=== PATIENT | female | born 1965 | race Caucasian/White ===

== ENCOUNTER 2018-06-25 13:19 | Inpatient (IN) | payer OTHER ==
[2018-06-22 18:05] VITALS: BMI 25.7
[~2018-06-25] VITALS: Ht 157.5 cm; Wt 65.5 kg
[2018-06-25] VITALS (9 sets, daily range): BP systolic 108–124; BP diastolic 77–90; PULSE 61–70; RESP 12–21; Ht 157.5 cm; Wt 65.5 kg
[2018-06-25] MEDS ORDERED: SYMB80120 INHALATION (13:44)
[2018-06-25] MEDS ORDERED: TIOT18CA INHALATION (13:44)
[2018-06-25] MEDS ORDERED: MONT10TA21 PO (13:45)
[2018-06-25] MEDS ORDERED: ATEN100T PO (13:45)
[2018-06-25] MEDS ORDERED: QUET400T PO (13:46)
[2018-06-25] MEDS ORDERED: TEMA15CA6 PO (13:46)
[2018-06-25] MEDS ORDERED: LUN2 PO (13:47)
[2018-06-25] MEDS ORDERED: LAMO100T83 PO (13:49)
[2018-06-25] MEDS ORDERED: LACTATED RINGER'S 1,000 ML IV SCH (15:00)
--- NOTE | 2018-06-25 15:25 | PREAC ---
Date/Time of Note Date/Time of Note DATE: 06/25/18 TIME: 15:23 Anesthesia Eval and Record Evaluation Time Pre-Procedure Interview DATE: 06/25/18 TIME: 15:23 Age 52 Sex female NPO: 8 hrs Preoperative diagnosis LUMBER DECOMPRESSION FX Planned procedure ANTERIOE l3 s1 ANTERIOR FUSION Past Medical History Past Medical History: Includes Cardio: HTN Pulm: COPD Surgery & Anesthesia Issues No known issue Meds Anticoagulation: No Beta Gordo within 24 hr: Yes Reported Medications Lamotrigine* (Lamictal*) 100 Mg Tablet, 50 MG PO DAILY, TAB 06/25/18 Eszopiclone (Lunesta) 2 Mg Tab, 2 MG PO HS PRN for INSOMNIA, TAB 06/25/18 Temazepam* (Restoril*) 15 Mg Capsule, 15 MG PO HS PRN for INSOMNIA, CAP 06/25/18 Quetiapine Fumarate* (Seroquel*) 400 Mg Tablet, 400 MG PO HS, TAB 06/25/18 Montelukast Sodium* (Singulair*) 10 Mg Tablet, 10 MG PO QHS, #30 TAB 06/25/18 Atenolol* (Atenolol*) 100 Mg Tablet, 100 MG PO DAILY, #30 TAB 06/25/18 Tiotropium [place]* (Spiriva*) 18 Mcg Cap.w.dev, 1 CAP INHALATION DAILY, #30 CAP 06/25/18 Budesonide-Formoterol Fumarate* (Symbicort*) 80-4.5 Inha, 2 PUFFS INHALATION BID, #1 EACH 06/25/18 Current Medications Lactated Ringer's 1,000 ml @ 25 mls/hr Q24H IV Last administered on 06/25/18at 14:39; Admin Dose 25 MLS/HR; Start 06/25/18 at 15:00 Meds reviewed: Yes Allergies Coded Allergies: amoxicillin (Verified Allergy, Severe, SWELLING, VOMITING, 06/25/18) clavulanic acid (Verified Allergy, Severe, SWELLING, VOMITING, 06/25/18) ketorolac (Verified Allergy, Severe, ANAPHYLAXIS, 06/25/18) morphine (Verified Allergy, Severe, 06/25/18) Allergies Reviewed: Yes Labs/Studies Labs Reviewed: Reviewed by anesthesiologist Result Diagram: 06/25/18 1448 Laboratory Tests 06/25/18 14:48 Blood Bank Test 06/25/18 14:48 Blood Product Summary Counts test: Negative Studies: ECG (SR), CXR (NL) Pre-procedure Exam Last vitals Vital Signs Date Temp Pulse Resp B/P (MAP) Pulse Ox O2 O2 Flow FiO2 Time Delivery Rate 06/25/18 97.6 68 16 122/77 96 Room Air 14:22 (92) Airway: Adequate mouth opening Mallampati: Mallampati I Teeth: Normal Lung: Normal Heart: Normal ASA Physical Status ASA physical status: 2 Emergency: None Planned Anesthetic General/MAC: ETT Nerve block: TAP (bilateral) Planned Pain Management Single shot nerve block, Parenteral pain med Pre-operative Attestations Prior to commencing anesthesia and surgery, the patient was re-evaluated, there was verification of: *The patient's identity *The results of appropriate recent lab work and preoperative vital signs *The above evaluation not changing prior to induction *Anesthetic plan, risk benefits, alternative and complications discussed with patient/family; questions answered; patient/family understands, accepts and wishes to proceed. JUANI CALIXTO MD June 25, 2018 15:25
[2018-06-25] MEDS ORDERED: LABETALOL HCL 20MG INJ IV PRN (15:30)
[2018-06-25] MEDS ORDERED: ONDANSETRON 4 MG INJ IV PRN ×2 (15:30→20:00)
[2018-06-25] MEDS ORDERED: MEPERIDINE 25 MG INJ IV PRN (15:30)
[2018-06-25] MEDS ORDERED: hydrALAzine 20 MG INJ IV PRN (15:30)
[2018-06-25] MEDS ORDERED: ALBUTEROL 0.083% (NEB) 2.5 MG/3 ML AMP HHN PRN (15:30)
[2018-06-25] MEDS ORDERED: IPRATROPIUM (NEB) 0.5 MG/2.5 ML AMP HHN PRN (15:30)
[2018-06-25] MEDS ORDERED: FENTAnyl 50 MCG/ML VIAL IV PRN ×3 (15:30)
[2018-06-25] MEDS ORDERED: HYDROmorphONE 1 MG/5 ML IV SYRINGE IV PRN ×3 (15:30)
[2018-06-25] MEDS ORDERED: DIPHENHYDRAMINE 50 MG INJ IV PRN (15:30)
[2018-06-25] MEDS ORDERED: GELATIN SIZE 100 SPONGE ONE (16:50)
[2018-06-25] MEDS ORDERED: CEFAZOLIN 1 GM INJ ONE ×2 (16:50→18:08)
[2018-06-25] MEDS ORDERED: HEPARIN 1000 UNITS/ML 10 ML INJ ONE (16:51)
[2018-06-25] MEDS ORDERED: THROMBIN 5000 UNIT VIAL ONE (16:56)
--- NOTE | 2018-06-25 17:02 | HPN ---
Date/Time of Note Date/Time of Note DATE: 06/25/18 TIME: 17:00 Interval H&P Admission Note Pt. seen H&P reviewed: No system changes Neurosurgery Update Note Extensive d/w patient about all available options including surgery vs no surgery. Overall risk/complications 3-5% as preprinted in my office consent form thoroughly discussed. All questions answered and no guarantees given. Pt understands this will be a staged procedure with anterior portion today and posterior fixation to follow in am (06/26/2018 0730) All questions answered and no guarantees given. NAHOMI GOMEZ MD June 25, 2018 17:02
[2018-06-25] MEDS ORDERED: ROPIVACAINE 0.5 % 30 ML VIAL ONE (17:33)
[2018-06-25] MEDS ORDERED: PROPOFOL 20 ML ONE ×2 (17:33→19:35)
[2018-06-25] MEDS ORDERED: ONDANSETRON 4 MG INJ ONE (17:33)
[2018-06-25] MEDS ORDERED: MIDAZOLAM 1 MG/ML 2 ML INJ ONE (17:33)
[2018-06-25] MEDS ORDERED: METOCLOPRAMIDE 10 MG INJ ONE (17:33)
[2018-06-25] MEDS ORDERED: ROCURONIUM 50 MG INJ ONE ×2 (17:33→18:18)
[2018-06-25] MEDS ORDERED: EPHEDrine 25 MG/5 ML SYG ONE (18:08)
[2018-06-25] MEDS ORDERED: HYDROmorphONE 2 MG/ML SYG ONE (18:41)
[2018-06-25] MEDS ORDERED: NACL 0.9% 3 ML SYG IV SCH (19:00)
[2018-06-25] MEDS ORDERED: HYDROCODONE/APAP (5/325) TAB PO PRN (19:00)
[2018-06-25] MEDS ORDERED: NALOXONE (0.4 MG/ML) INJ IV PRN (19:00)
[2018-06-25] MEDS ORDERED: AL HYDROX/MG HYDROX/SIMETH 30 ML CUP PO PRN (19:00)
[2018-06-25] MEDS ORDERED: NEOSTIGMINE 3 MG/3 ML SYRINGE ONE (19:36)
[2018-06-25] MEDS ORDERED: GLYCOPYRROLATE 0.4 MG INJ ONE (19:36)
[2018-06-25] MEDS ORDERED: HYDROmorphONE 0.5 MG/0.5 ML SYG IV PRN ×3 (20:00)
--- NOTE | 2018-06-25 20:02 | OPPN ---
Date/Time of Note Date/Time of Note DATE: 06/25/18 TIME: 20:00 Operative Report Preoperative Diagnosis Mechnical LBP and LE radiculopathy Postoperative Diagnosis same Operation/Procedure Performed ALIF L3,4 and L5S1 Surgeon see signature line biology laboratory assistant Malekmehr Second assist: SAMARIA ALFORD NP Anesthesia: general Estimated blood loss: 150 - 200 ml's Transfusion Required none Specimen sent Grafts/Implants cages, screws, formagraf, allograft bone Complications none NAHOMI GOMEZ MD June 25, 2018 20:02
[2018-06-25] MEDS ORDERED: DIPHENHYDRAMINE 50 MG INJ ONE (20:07)
[2018-06-25] MEDS ORDERED: MEPERIDINE 100 MG INJ ONE (20:08)
[2018-06-25] MEDS ORDERED: METOPROLOL 5 MG INJ ONE (20:09)
--- NOTE | 2018-06-25 20:37 | OPR ---
DATE OF OPERATION: 06/25/2018 PREOPERATIVE DIAGNOSIS: Degenerative disk disease, lumbosacral spine. POSTOPERATIVE DIAGNOSIS: Degenerative disk disease, lumbosacral spine. OPERATION PERFORMED: 1. Anterior retroperitoneal exposure, interbody fusion, L3 to L4. 2. Anterior retroperitoneal exposure, interbody fusion, L5 to S1. SURGEON: Shanda Atkinson MD COSURGEON: Cam Gomez MD ESTIMATED BLOOD LOSS: 150 mL. INFORMED CONSENT: Risks, benefits, complications, alternative therapies, high-risk nature of the ope ration were fully explained to the patient. Consent was obtained. Risks and benefits that were expl ained to the patient included but not limited to bleeding, infection, damage to bowel, damage to uret er, wound infection, wound dehiscence, DVT, PE, loss of limb, loss of life, high-risk nature of the o peration fully explained and stressed to the patient. All questions were answered. OPERATIVE TECHNIQUE: The patient was placed in supine position, prepped and draped in usual sterile fashion. I made a 10 cm incision in left paramedian and from the umbilicus down, incision was taken down to subcutaneous tissue which was then opened using electrocautery. Left anterior rectus sheath was opened in the direction of the wound. Posterior rectus sheath was incised superiorly about 2 cm. Bookwalter retractor was placed retracting the bowel contents to the right, left rectus muscle to l eft. I dissected the left common iliac artery and vein, external iliac artery and vein. The iliolum bar veins were ligated using 2-0 silk sutures and titanium clips. Middle sacral vessels were ligated using titanium clips. Exposure for L3 to L4 was obtained by retracting the vena cava and aorta to t he right side. Exposure for L5 to S1 was obtained between the right and left common iliac artery and vein. We proceeded with the diskectomy and the placement of the new cage. Please refer to Dr. Milena do's dictations for the details of that operation. After all the x-rays were satisfactory read by Dr. Gomez, needle count and sponge count was correct. The wound was irrigated using antibiotic solution . Posterior rectus sheath was closed using 0 Vicryl suture in running fashion. Anterior rectus harris th was closed using a #1 Vicryl suture in running fashion. The wound was irrigated again and closed in 2 layers of 2-0 Vicryl suture for subcutaneous and Steri-Strips for the skin. The patient tolerat ed procedure well. Dictated By: SHANDA ATKINSON MD FM/MANUEL Conf#: [id number] DID#: [id number] CC: CAM GOMEZ MD;*EndCC*
[2018-06-25] MEDS: NS + KCL 20 MEQ 1,000 ML IV SCH (20:40)
--- NOTE | 2018-06-25 20:41 | CONS ---
DATE OF ADMISSION: 06/25/2018 DATE OF CONSULTATION: 06/25/2018 REASON FOR CONSULTATION: Evaluation for anterior retroperitoneal exposure interbody fusion of lumbos acral spine. HISTORY OF PRESENT ILLNESS: This is a 52-year-old female with a history of degenerative disk disease , lumbosacral spine. The patient is being admitted to undergo anterior retroperitoneal exposure and interbody fusion of lumbosacral spine. PAST SURGICAL HISTORY: None. ALLERGIES: NONE. SOCIAL HISTORY: No smoking, drinking or drug use. MEDICATIONS: Reviewed. PHYSICAL EXAMINATION: VITAL SIGNS: Blood pressure is 110/60, pulse is 80, respirations 18. CARDIOVASCULAR: Normal S1, S2. No murmurs, gallops or rubs. LUNGS: Clear. ABDOMEN: Soft. EXTREMITIES: Warm. IMPRESSION: Degenerative disk disease, lumbosacral spine. RECOMMENDATIONS: We will proceed with anterior retroperitoneal exposure interbody fusion of lumbosac ral spine. Risks, benefits, complications, alternative therapies, high-risk nature of the operation were fully explained to the patient and the family. All questions were answered. Risks and benefits that were explained to the patient and the family included but not limited to bleeding, infection, d amage to bowel, damage to ureter, wound infection, wound dehiscence, DVT, PE, loss of limb, loss of l aldo, high-risk nature of the operation were fully explained and stressed to the patient. All questio ns answered. Dictated By: SHANDA DANIEL MD FM/NTS Conf#: [id number] DID#: [id number] CC: NAHOMI GOMEZ MD;*EndCC*
[2018-06-25] MEDS: HYDROmorphONE 0.2 MG/ML PCA IV SCH (21:59)
[2018-06-25] MEDS: CEFAZOLIN 2 GM/50 ML (PMX) 50 ML IVPB SCH (22:00)
[2018-06-26] VITALS (67 sets, daily range): BP systolic 62–144; BP diastolic 39–127; PULSE 70–97; RESP 9–28
[2018-06-26] MEDS: HYDROmorphONE 0.2 MG/ML PCA IV SCH ×5 (01:59→21:31)
[2018-06-26] MEDS: NS + KCL 20 MEQ 1,000 ML IV SCH ×2 (05:33→14:21)
[2018-06-26] MEDS: CEFAZOLIN 2 GM/50 ML (PMX) 50 ML IVPB SCH ×3 (06:16→21:12)
[2018-06-26] MEDS ORDERED: DESFLURANE 15 MIN ONE (07:00)
[2018-06-26] MEDS ORDERED: THROMBIN 5000 UNIT VIAL ONE (07:06)
[2018-06-26] MEDS ORDERED: GELATIN SIZE 100 SPONGE ONE (07:06)
[2018-06-26] MEDS ORDERED: ROPIVACAINE 0.5 % 30 ML VIAL ONE (07:07)
[2018-06-26] MEDS ORDERED: POLYMYXIN/BACITRACIN 1L IRRIG ONE (07:07)
[2018-06-26] MEDS ORDERED: MIDAZOLAM 1 MG/ML 2 ML INJ ONE (07:51)
[2018-06-26] MEDS ORDERED: CEFAZOLIN 1 GM INJ ONE (07:51)
[2018-06-26] MEDS ORDERED: ONDANSETRON 4 MG INJ ONE (07:51)
[2018-06-26] MEDS ORDERED: METOCLOPRAMIDE 10 MG INJ ONE (07:51)
[2018-06-26] MEDS ORDERED: PROPOFOL 20 ML ONE (07:51)
[2018-06-26] MEDS ORDERED: ROCURONIUM 50 MG INJ ONE ×2 (07:51→09:55)
--- NOTE | 2018-06-26 07:51 | PREAC ---
Date/Time of Note Date/Time of Note DATE: 06/26/18 TIME: 07:49 Anesthesia Eval and Record Evaluation Time Pre-Procedure Interview DATE: 06/26/18 TIME: 07:49 Age 52 Sex female NPO: 8 hrs Preoperative diagnosis L3s1 degenerative disease lumbar fx Planned procedure L3 s1 posterior minstrumentation, cagesm screw Past Medical History Past Medical History: Includes Cardio: HTN Pulm: COPD Surgery & Anesthesia Issues No known issue Meds Anticoagulation: No Beta Gordo within 24 hr: Yes Reason Beta Gordo not given: Pt. not on B-Gordo Reported Medications Lamotrigine* (Lamictal*) 100 Mg Tablet, 50 MG PO DAILY, TAB 06/25/18 Eszopiclone (Lunesta) 2 Mg Tab, 2 MG PO HS PRN for INSOMNIA, TAB 06/25/18 Temazepam* (Restoril*) 15 Mg Capsule, 15 MG PO HS PRN for INSOMNIA, CAP 06/25/18 Quetiapine Fumarate* (Seroquel*) 400 Mg Tablet, 400 MG PO HS, TAB 06/25/18 Montelukast Sodium* (Singulair*) 10 Mg Tablet, 10 MG PO QHS, #30 TAB 06/25/18 Atenolol* (Atenolol*) 100 Mg Tablet, 100 MG PO DAILY, #30 TAB 06/25/18 Tiotropium [place]* (Spiriva*) 18 Mcg Cap.w.dev, 1 CAP INHALATION DAILY, #30 CAP 06/25/18 Budesonide-Formoterol Fumarate* (Symbicort*) 80-4.5 Inha, 2 PUFFS INHALATION BID, #1 EACH 06/25/18 Current Medications Lactated Ringer's 1,000 ml @ 25 mls/hr Q24H IV Last administered on 06/25/18at 14:39; Admin Dose 25 MLS/HR; Start 06/25/18 at 15:00 Acetaminophen/ Hydrocodone Bitart ([place] (5/325)) 1 tab Q4H PRN PO .PAIN 1-5; Start 06/25/18 at 19:00 Al Hydrox/Mg Hydrox/Simethicone (Mag-Al Plus) 15 ml Q4H PRN PO .CONSTIPATION; Start 06/25/18 at 19:00 IV Flush (NS 3 ml) 3 ml PER PROTOCOL IV ; Start 06/25/18 at 19:00 Hydromorphone HCl (Dilaudid STRATEGY INTERN) 1 mg Q4PCA IV Last administered on 06/26/18at 07:05; Admin Dose 1 MG; Start 06/25/18 at 19:00 Naloxone HCl (Narcan) 0.2 mg Q2M PRN IV RR 8 BREATHS/MIN OR LESS; Start 06/25/18 at 19:00 Cefazolin Sodium/ Dextrose 50 ml @ 100 mls/hr Q8 IVPB Last administered on 06/26/18at 06:16; Admin Dose 100 MLS/HR; Start 06/25/18 at 22:00; Stop 06/28/18 at 22:00 Potassium Chloride/Sodium Chloride 1,000 ml @ 100 mls/hr Q10H IV Last administered on 06/26/18at 05:33; Admin Dose 100 MLS/HR; Start 06/25/18 at 19:00 Meds reviewed: Yes Allergies Coded Allergies: amoxicillin (Verified Allergy, Severe, SWELLING, VOMITING, 06/25/18) clavulanic acid (Verified Allergy, Severe, SWELLING, VOMITING, 06/25/18) ketorolac (Verified Allergy, Severe, ANAPHYLAXIS, 06/25/18) morphine (Verified Allergy, Severe, 06/25/18) Allergies Reviewed: Yes Labs/Studies Labs Reviewed: Reviewed by anesthesiologist Result Diagram: 06/26/18 0430 06/26/18 0430 Laboratory Tests 06/26/18 04:30 Blood Bank Test 06/25/18 14:48 Antibody Screen NEGATIVE Blood Product Summary Counts Blood Type O POSITIVE Crossmatch Red Blood Cells test: Negative Studies: ECG (sr), CXR (nl) Pre-procedure Exam Last vitals Vital Signs Date Temp Pulse Resp B/P (MAP) Pulse Ox O2 O2 Flow FiO2 Time Delivery Rate 06/26/18 87 19 123/74 07:30 (90) 06/26/18 100 07:00 06/26/18 98.1 Room Air 04:00 06/25/18 8.0 21:00 Airway: Adequate mouth opening Mallampati: Mallampati I Teeth: Normal Lung: Normal Heart: Normal ASA Physical Status ASA physical status: 2 Emergency: None Planned Anesthetic General/MAC: ETT Planned Pain Management Parenteral pain med Pre-operative Attestations Prior to commencing anesthesia and surgery, the patient was re-evaluated, there was verification of: *The patient's identity *The results of appropriate recent lab work and preoperative vital signs *The above evaluation not changing prior to induction *Anesthetic plan, risk benefits, alternative and complications discussed with patient/family; questions answered; patient/family understands, accepts and wishes to proceed. JUANI CALIXTO MD June 26, 2018 07:51
--- NOTE | 2018-06-26 07:55 | PAC ---
Date/Time of Note Date/Time of Note DATE: 06/26/18 TIME: 07:54 Post-Anesthesia Notes Post-Anesthesia Note Last documented vital signs Vital Signs Date Temp Pulse Resp B/P (MAP) Pulse Ox O2 O2 Flow FiO2 Time Delivery Rate 06/26/18 98.1 87 19 123/74 100 07:30 (90) 06/26/18 100 07:00 06/26/18 98.1 Room Air 04:00 06/25/18 8.0 21:00 Activity: WNL Respiratory function: WNL Cardiovascular function: WNL Mental status: Baseline Pain reasonably controlled: Yes Hydration appropriate: Yes Nausea/Vomiting absent: No JUANI CALIXTO MD June 26, 2018 07:54
--- NOTE | 2018-06-26 07:58 | HPN ---
Date/Time of Note Date/Time of Note DATE: 06/26/18 TIME: 07:56 Interval H&P Admission Note Pt. seen H&P reviewed: No system changes Neurosurgery Update Extensive d/w patient about all available options including surgery vs no surgery. Overall risk/complications 3-5% thoroughly discussed. All questions answered and no guarantees given. Posterior fixation planned for today. NAHOMI GOMEZ MD June 26, 2018 07:58
[2018-06-26] MEDS ORDERED: HYDROmorphONE 2 MG/ML SYG ONE (08:42)
[2018-06-26] MEDS ORDERED: NEOSTIGMINE 3 MG/3 ML SYRINGE ONE (09:46)
[2018-06-26] MEDS ORDERED: PHENYLephrine (100 MCG/ML) 10ML SYG ONE (09:46)
[2018-06-26] MEDS ORDERED: GLYCOPYRROLATE 0.4 MG INJ ONE (09:46)
--- NOTE | 2018-06-26 09:53 | OPPN ---
Date/Time of Note Date/Time of Note DATE: 06/26/18 TIME: 09:52 Operative Report Preoperative Diagnosis Mechanical LBP with LE Radiculopathy Postoperative Diagnosis Same Operation/Procedure Performed 1. L4-5 Lumbar Hardware Removal 2. L3-S1 ISF placement Surgeon see signature line assistant associate full professor KARL Juarez, ACNP-BC Anesthesia: general Estimated blood loss: 50 - 100 ml's Transfusion Required none Specimen L3-S1 bones and ligaments Grafts/Implants none Complications none NAHOMI GOMEZ MD June 26, 2018 09:53
[2018-06-26] MEDS ORDERED: HYDROmorphONE 0.5 MG/0.5 ML SYG IV PRN ×3 (10:00)
[2018-06-26] MEDS ORDERED: MEPERIDINE 25 MG INJ IV PRN (10:00)
[2018-06-26] MEDS ORDERED: DIPHENHYDRAMINE 50 MG INJ IV PRN (10:00)
[2018-06-26] MEDS ORDERED: ONDANSETRON 4 MG INJ IV PRN (10:00)
[2018-06-26] MEDS ORDERED: hydrALAzine 20 MG INJ IV PRN (10:00)
[2018-06-26] MEDS ORDERED: LABETALOL HCL 20MG INJ IV PRN (10:00)
[2018-06-26] MEDS ORDERED: FENTAnyl 50 MCG/ML VIAL IV PRN ×3 (10:00)
[2018-06-26] MEDS: LORAZEPAM 2 MG INJ IV PRN ×3 (11:28→22:43)
[2018-06-26] MEDS ORDERED: LAMOTRIGINE 100 MG TAB PO SCH (11:30)
[2018-06-26] MEDS ORDERED: ZOLPIDEM 5 MG TAB PO PRN (11:30)
[2018-06-26] MEDS ORDERED: NON-FORMULARY/PATIENT OWN MED (Eszopiclone (Lunesta) 2 MG) PO PRN (11:30)
--- NOTE | 2018-06-26 11:35 | HP ---
Date/Time of Note Date/Time of Note DATE: 06/26/18 TIME: 11:21 Assessment/Plan VTE Prophylaxis Risk score (from Ns)>0 risk: 9 SCD applied [place]from [facility] Yes Pharmacological prophylaxis: NA/contraindicated Pharm contraindication: surgical contra Lines/Catheters IV Catheter Type (from Nrsg): A Line Assessment/Plan Assessment/Plan -Mechanical LBP and LE radiculopathy. S/p ALIF L3,[address] Norman with anterior peritoneal exposure by Dr. Atkinson on 06/25/18. S/p L4-5 Lumbar Hardw are Removal and L3-S1 ISF placement by Reyes Norman on 06/26/18. 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 Continue IV fluids and postoperative antibiotic. Physical therapy. -Chronic lower back pain. Dr. Lux is asked to see patient in pain management consultation. -Hypertension, continue atenolol. -COPD, continue budesonide -Severe insomnia Further recommendations based on clinical course. Plan of care discussed with Dr. Gibbons. Result Diagram: 06/26/18 0430 06/26/18 0430 Results 24hrs Laboratory Tests Test 06/25/18 14:48 06/26/18 04:30 White Blood Count 6.4 7.4 Red Blood Count 4.06 L 3.64 L Hemoglobin 13.4 12.0 Hematocrit 39.6 35.1 L Mean Corpuscular Volume 97.5 96.4 Mean Corpuscular Hemoglobin 33.0 33.0 Mean Corpuscular Hemoglobin Concent 33.8 34.2 Red Cell Distribution Width 13.1 12.9 Platelet Count 274 251 Mean Platelet Volume 9.7 10.2 Immature Granulocytes % 0.200 0.300 Neutrophils % 66.9 77.8 H Lymphocytes % 24.0 13.2 L Monocytes % 6.2 7.7 Eosinophils % 1.9 0.5 Basophils % 0.8 0.5 Nucleated Red Blood Cells % 0.0 0.0 Immature Granulocytes # 0.010 0.020 Neutrophils # 4.3 5.8 Lymphocytes # 1.5 1.0 Monocytes # 0.4 0.6 Eosinophils # 0.1 0.0 Basophils # 0.1 0.0 Nucleated Red Blood Cells # 0.0 0.0 Prothrombin Time 12.5 13.1 Prothrombin Time Ratio 1.0 1.0 INR International Normalized Ratio 0.92 0.98 Activated Partial Thromboplast Time 28.8 Sodium Level 140 139 Potassium Level 3.9 3.8 Chloride Level 110 111 H Carbon Dioxide Level 23 23 Anion Gap 7 5 Blood Urea Nitrogen 19 14 Creatinine 1.16 H 0.89 Est Glomerular Filtrat Rate mL/min 49 L > 60 Glucose Level 90 97 Calcium Level 9.4 8.4 Total Bilirubin 0.7 Direct Bilirubin 0.00 Indirect Bilirubin 0.7 Aspartate Amino Transf (AST/SGOT) 27 Alanine Aminotransferase (ALT/SGPT) 20 Alkaline Phosphatase 80 Total Protein 7.1 Albumin 4.0 Globulin 3.10 Albumin/Globulin Ratio 1.29 HPI/ROS Admit Date/Time Admit Date/Time June 25, 2018 at 13:19 Hx of Present Illness Patient is a 52-year-old female with mechanical low back pain and lower extremity radiculopathy with history of multiple lumbar surgeries underwent anterior lumbar interbody fusion last night with completion of posterior part of the surgery today. Patient had a history of hypertension, COPD, severe insomnia. Patient seen and intensive care unit, awake alert uses HOUSEHOLD APPLIANCES SERVICE TECHNICIAN Dilaudid as needed for pain patient is slightly anxious. Patient denies shortness of breath denies chest pain denies any nausea and vomiting. ROS 12 point review of system is negative except for what mentioned in HPI PMH/Family/Social Past Medical History Medical History: hypertension, other (COPD, insomnia, chronic low back pain) Medications Current Medications Acetaminophen/ Hydrocodone Bitart ([place] (5/325)) 1 tab Q4H PRN PO .PAIN 1-5; Start 06/25/18 at 19:00 Al Hydrox/Mg Hydrox/Simethicone (Mag-Al Plus) 15 ml Q4H PRN PO .CONSTIPATION; Start 06/25/18 at 19:00 IV Flush (NS 3 ml) 3 ml PER PROTOCOL IV ; Start 06/25/18 at 19:00 Hydromorphone HCl (Dilaudid HOUSEHOLD APPLIANCES SERVICE TECHNICIAN) 1 mg Q4PCA IV Last administered on 06/26/18at 07:05; Admin Dose 1 MG; Start 06/25/18 at 19:00 Naloxone HCl (Narcan) 0.2 mg Q2M PRN IV RR 8 BREATHS/MIN OR LESS; Start 06/25/18 at 19:00 Cefazolin Sodium/ Dextrose 50 ml @ 100 mls/hr Q8 IVPB Last administered on 06/26/18at 06:16; Admin Dose 100 MLS/HR; Start 06/25/18 at 22:00; Stop 06/28/18 at 22:00 Potassium Chloride/Sodium Chloride 1,000 ml @ 100 mls/hr Q10H IV Last administered on 06/26/18at 05:33; Admin Dose 100 MLS/HR; Start 06/25/18 at 19:00 Hydromorphone HCl (Dilaudid) 0.2 mg ICU RECOVERY PRN IV MILD PAIN LEVEL 1-3; Start 06/26/18 at 10:00; Stop 06/26/18 at 17:00 Hydromorphone HCl (Dilaudid) 0.4 mg ICU RECOVERY PRN IV MODERATE PAIN LEVEL 4-6; Start 06/26/18 at 10:00; Stop 06/26/18 at 12:00 Hydromorphone HCl (Dilaudid) 0.6 mg ICU RECOVERY PRN IV SEVERE PAIN LEVEL 7-10; Start 06/26/18 at 10:00; Stop 06/26/18 at 12:00 Fentanyl (Sublimaze) 25 mcg ICU RECOVERY PRN IV MILD PAIN LEVEL 1-3; Start 06/26/18 at 10:00; Stop 06/26/18 at 17:00 Fentanyl (Sublimaze) 50 mcg ICU RECOVERY PRN IV MODERATE PAIN LEVEL 4-6 Last administered on 06/26/18at 10:55; Admin Dose 50 MCG; Start 06/26/18 at 10:00; Stop 06/26/18 at 17:00 Fentanyl (Sublimaze) 75 mcg ICU RECOVERY PRN IV SEVERE PAIN LEVEL 7-10; Start 06/26/18 at 10:00; Stop 06/26/18 at 17:00 Ondansetron HCl (Zofran Inj) 4 mg ICU RECOVERY PRN IV NAUSEA/VOMITING; Start 06/26/18 at 10:00; Stop 06/26/18 at 16:00 Labetalol HCl (Labetalol) 5 mg ICU RECOVERY PRN IV HIGH BLOOD PRESSURE; Start 06/26/18 at 10:00; Stop 06/26/18 at 16:00 Hydralazine HCl (Apresoline) 5 mg ICU RECOVERY PRN IV HIGH BLOOD PRESSURE; Start 06/26/18 at 10:00; Stop 06/26/18 at 17:00 Meperidine HCl (Demerol) 25 mg ICU RECOVERY PRN IV .RIGORS; Start 06/26/18 at 10:00; Stop 06/26/18 at 17:00 Diphenhydramine HCl (Benadryl) 25 mg ICU RECOVERY PRN IV .PRURITUS Last administered on 06/26/18at 10:29; Admin Dose 25 MG; Start 06/26/18 at 10:00; Stop 06/26/18 at 16:00 Lorazepam (Ativan) 0.5 mg Q4 PRN IV AGITATION/ANXIETY; Start 06/26/18 at 11:30 Atenolol (Tenormin) 100 mg DAILY PO ; Start 06/26/18 at 11:30; Status UNV Lamotrigine (Lamictal) 50 mg DAILY PO ; Start 06/26/18 at 11:30; Status UNV Montelukast Sodium (Singulair) 10 mg QHS PO ; Start 06/26/18 at 21:00; Status UNV Quetiapine Fumarate (Seroquel) 400 mg HS PO ; Start 06/26/18 at 21:00; Status UNV Tiotropium [place] (Spiriva) 1 inh DAILY INH ; Start 06/26/18 at 11:30 Miscellaneous Information 2 puffs BID INHALATION ; Start 06/26/18 at 21:00; Status UNV Miscellaneous Information 2 mg HS PRN PO INSOMNIA; Start 06/26/18 at 11:30; Status UNV Miscellaneous Information 15 mg HS PRN PO INSOMNIA; Start 06/26/18 at 11:30; Status UNV Coded Allergies: amoxicillin (Verified Allergy, Severe, SWELLING, VOMITING, 06/25/18) clavulanic acid (Verified Allergy, Severe, SWELLING, VOMITING, 06/25/18) ketorolac (Verified Allergy, Severe, ANAPHYLAXIS, 06/25/18) morphine (Verified Allergy, Severe, 06/25/18) Past Surgical History Past Surgical Hx: other (Status post multiple lumbar surgery, status post cervical spine anterior fusion, status post breast implants) Family History Significant Family History: cancer (Breast cancer and patient sibling), hypertension (Patient's mother) Social History Alcohol Use: occasionally Smoking Status: Former smoker Drug Use: none Exam/Review of Systems Vital Signs Vitals Vital Signs Date Temp Pulse Resp B/P (MAP) Pulse Ox O2 O2 Flow FiO2 Time Delivery Rate 06/26/18 76 9 78/63 (68) 100 Nasal 11:00 Cannula 06/26/18 98.4 10:02 06/25/18 8.0 21:00 Intake and Output 06/25/18 06/25/18 06/26/18 1515:00 23:00 07:00 IntakeIntake Total 1450 ml 950 ml OutputOutput Total 300 ml 465 ml BalanceBalance 1150 ml 485 ml Exam Constitutional: alert, oriented Head: normocephalic Neck: supple Respiratory: clear to auscultation Cardiovascular: regular rate and rhythm Gastrointestinal: soft, other (Status post surgery) Musculoskeletal: other (Status post surgery, JOHN drain) Extremities: normal pulses Neurological: nl mental status Skin: nl JORDI Jimenez June 26, 2018 11:33
[2018-06-26] MEDS ORDERED: ALBUTEROL/IPRATROPIUM (NEB) 3 ML AMP HHN PRN (12:00)
[2018-06-26] MEDS: BUDESONIDE (NEB) 0.5MG/2ML AMP INH SCH ×2 (13:13→22:05)
[2018-06-26] MEDS: ARFORMOTEROL TARTRATE 15MCG/2 ML AMP INH SCH ×2 (13:13→22:12)
[2018-06-26] MEDS: TIOTROPIUM 18 MCG CAPSULE INHA DEV INH SCH (14:17)
[2018-06-26] MEDS: LAMOTRIGINE 25 MG TAB PO SCH (14:18)
[2018-06-26] MEDS: ATENOLOL 100 MG TAB PO SCH (14:18)
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
[2018-06-26] MEDS ORDERED: NON-FORMULARY/PATIENT OWN MED (Budesonide-Formoterol Fumarate* (Symbicort*) 2 PUFFS) INHALATION SCH (21:00)
[2018-06-26] MEDS: QUETIAPINE 100 MG TAB PO SCH (21:09)
[2018-06-26] MEDS: clonAZEPAM 0.5 MG TAB PO PRN (21:10)
[2018-06-26] MEDS: MONTELUKAST 10 MG TAB PO SCH (22:43)
[2018-06-27] VITALS (19 sets, daily range): BP systolic 90–121; BP diastolic 58–76; PULSE 71–90; RESP 13–23
[2018-06-27] MEDS: NS + KCL 20 MEQ 1,000 ML IV SCH ×3 (01:06→23:37)
[2018-06-27] MEDS: CEFAZOLIN 2 GM/50 ML (PMX) 50 ML IVPB SCH ×3 (05:40→21:57)
[2018-06-27] MEDS: HYDROmorphONE 0.2 MG/ML PCA IV SCH ×3 (07:35→20:44)
--- NOTE | 2018-06-27 08:05 | PAC ---
Date/Time of Note Date/Time of Note DATE: 06/27/18 TIME: 08:04 Post-Anesthesia Notes Post-Anesthesia Note Last documented vital signs Vital Signs Date Temp Pulse Resp B/P (MAP) Pulse Ox O2 O2 Flow FiO2 Time Delivery Rate 06/27/18 99.6 81 18 98/63 (75) 98 06:00 06/27/18 100.0 Nasal 2.0 04:00 Cannula 06/26/18 21 13:09 Activity: WNL Respiratory function: WNL Cardiovascular function: WNL Mental status: Baseline Pain reasonably controlled: Yes Hydration appropriate: Yes Nausea/Vomiting absent: No JUANI CALIXTO MD June 27, 2018 08:05
[2018-06-27] MEDS: ARFORMOTEROL TARTRATE 15MCG/2 ML AMP INH SCH ×2 (08:16→19:38)
[2018-06-27] MEDS: BUDESONIDE (NEB) 0.5MG/2ML AMP INH SCH ×2 (08:16→19:46)
[2018-06-27] MEDS: ATENOLOL 100 MG TAB PO SCH (09:00)
[2018-06-27] MEDS: LAMOTRIGINE 25 MG TAB PO SCH (09:22)
[2018-06-27] MEDS: TIOTROPIUM 18 MCG CAPSULE INHA DEV INH SCH (09:28)
--- NOTE | 2018-06-27 10:20 | CONS ---
Assessment/Plan Assessment/Plan Assessment/Plan (Daily) Assessment/Plan -Mechanical LBP and LE radiculopathy. S/p ALIF L3,[address] Norman with anterior peritoneal exposure by Dr. Atkinson on 06/25/18. S/p L4-5 Lumbar Hardware Removal and L3-S1 ISF placement by Reyes Norman on 06/26/18. Continue ALGOLOGIST Dilaudid as needed for pain and Zofran as needed for nausea. Continue IV fluids and postoperative antibiotic. Continue with current pain control ALGOLOGIST, will adjust anxiolytics Patient is being fitted for brace today May be moved out of the intensive care unit Continue with patient support and encouragement Encouraged adjunctive forms of pain control distraction therapy, music, meditation Consultation Date/Type/Reason Admit Date/Time June 25, 2018 at 13:19 Initial Consult Date Date/Time of Note DATE: 06/27/18 TIME: 10:19 24 HR Interval Summary Free Text/Dictation She is status post anterior retroperitoneal exposure interbody fusion of lumbosacral spine at levels L3-L4, L5-S1 Lumbar sacral spine postop pain Currently on ALGOLOGIST we will adjust to include a continuous as well as a demand dose History of bronchitis On HHN's Insomnia Anxiety syndrome Exam/Review of Systems Exam Vitals Vital Signs Date Temp Pulse Resp B/P (MAP) Pulse Ox O2 O2 Flow FiO2 Time Delivery Rate 06/27/18 84 17 93/67 (76) 93 09:00 06/27/18 2.0 08:16 06/27/18 Nasal 08:16 Cannula 06/27/18 100.0 04:00 06/26/18 21 13:09 Intake and Output 06/26/18 06/26/18 06/27/18 1515:00 23:00 07:00 IntakeIntake Total 905 ml 1210 ml 950 ml OutputOutput Total 520 ml 380 ml 365 ml BalanceBalance 385 ml 830 ml 585 ml Constitutional: alert, oriented, well developed Psych: anxiety Neurological: RUG REPAIRER II-XII intact, nl mental status, nl speech, nl strength; No confused, No DTR's symmetric, No focal weakness, No lethargic, No numbness, No reflexes, No unresponsive, No other Results Result Diagram: 06/27/18 0428 06/27/18 0428 Results 24hrs Laboratory Tests Test 06/27/18 04:28 White Blood Count 8.9 # Red Blood Count 3.29 L Hemoglobin 11.0 L Hematocrit 32.1 L Mean Corpuscular Volume 97.6 Mean Corpuscular Hemoglobin 33.4 H Mean Corpuscular Hemoglobin Concent 34.3 Red Cell Distribution Width 12.6 Platelet Count 243 Mean Platelet Volume 10.1 Immature Granulocytes % 0.500 H Neutrophils % 81.0 H Lymphocytes % 9.1 L Monocytes % 8.1 Eosinophils % 0.8 Basophils % 0.5 Nucleated Red Blood Cells % 0.0 Immature Granulocytes # 0.040 H Neutrophils # 7.2 Lymphocytes # 0.8 Monocytes # 0.7 Eosinophils # 0.1 Basophils # 0.0 Nucleated Red Blood Cells # 0.0 Sodium Level 134 L Potassium Level 3.9 Chloride Level 106 Carbon Dioxide Level 23 Anion Gap 5 Blood Urea Nitrogen 7 Creatinine 0.89 Est Glomerular Filtrat Rate mL/min > 60 Glucose Level 115 Calcium Level 8.5 Medications Medication Current Medications Al Hydrox/Mg Hydrox/Simethicone (Mag-Al Plus) 15 ml Q4H PRN PO .CONSTIPATION; Start 06/25/18 at 19:00 IV Flush (NS 3 ml) 3 ml PER PROTOCOL IV ; Start 06/25/18 at 19:00 Naloxone HCl (Narcan) 0.2 mg Q2M PRN IV RR 8 BREATHS/MIN OR LESS; Start 06/25/18 at 19:00 Cefazolin Sodium/ Dextrose 50 ml @ 100 mls/hr Q8 IVPB Last administered on 06/27/18at 05:40; Admin Dose 100 MLS/HR; Start 06/25/18 at 22:00; Stop 06/28/18 at 22:00 Potassium Chloride/Sodium Chloride 1,000 ml @ 100 mls/hr Q10H IV Last administered on 06/27/18at 01:06; Admin Dose 100 MLS/HR; Start 06/25/18 at 19:00 Lorazepam (Ativan) 0.5 mg Q4 PRN IV AGITATION/ANXIETY Last administered on 06/26/18at 22:43; Admin Dose 0.5 MG; Start 06/26/18 at 11:30 Atenolol (Tenormin) 100 mg DAILY PO Last administered on 06/26/18at 14:18; Admin Dose 100 MG; Start 06/26/18 at 11:30 Montelukast Sodium (Singulair) 10 mg QHS PO Last administered on 06/26/18 22:43; Admin Dose 10 MG; Start 06/26/18 at 21:00 Quetiapine Fumarate (Seroquel) 400 mg HS PO Last administered on 06/26/18 21 :09; Admin Dose 400 MG; Start 06/26/18 at 21:00 Tiotropium [place] (Spiriva) 1 inh DAILY INH Last administered on 06/27/18 09:28; Admin Dose 1 INH; Start 06/26/18 at 11:30 Lamotrigine (Lamictal) 50 mg DAILY PO Last administered on 06/27/18 09:22; Admin Dose 50 MG; Start 06/26/18 at 11:30 Albuterol/ Ipratropium (Duoneb) 3 ml Q4H RESP THERAPY PRN HHN SHORTNESS OF BREATH Last administered on 06/26/18 13:08; Admin Dose 3 ML; Start 06/26/18 at 12:00 Arformoterol Tartrate (Brovana (Neb)) 2 ml BID RESP THERAPY INH Last administered on 06/27/18 08:16; Admin Dose 2 ML; Start 06/26/18 at 13:00 Budesonide (Pulmicort (Neb)) 0.5 mg Q12H RESP THERAPY INH Last administered on 06/27/18 08:16; Admin Dose 0.5 MG; Start 06/26/18 at 13:00 Hydromorphone HCl (Dilaudid ALGOLOGIST) 1 mg Q4PCA IV Last administered on 06/27/18 07:35; Admin Dose 1 MG; Start 06/26/18 at 17:00 Clonazepam (Klonopin) 1 mg HS PRN PO INSOMNIA Last administered on 06/26/18 21:10; Admin Dose 1 MG; Start 06/26/18 at 16:30 MARYSE CHAVARRIA June 27, 2018 10:20
--- NOTE | 2018-06-27 10:46 | PN ---
Date/Time of Note Date/Time of Note DATE: 06/27/18 TIME: 10:39 Assessment/Plan VTE Prophylaxis Risk score (from Ns)>0 risk: 1 SCD applied (from Ns): Yes Pharmacological prophylaxis: NA/contraindicated Pharm contraindication: surgical contra Lines/Catheters IV Catheter Type (from Nrsg): Saline Lock Assessment/Plan Hospital Course Patient is awake alert sitting in bed eating breakfast, remains hemodynamically stable, patient continues on BINDER SORTER Dilaudid for pain. Patient stated that she slept well last night. Will undergo PT now. Okay to transfer to medical surgical floor if cleared by neurosurgery. Assessment/Plan -Mechanical LBP and LE radiculopathy. S/p ALIF L3,[address] Norman with anterior peritoneal exposure by Dr. Atkinson on 06/25/18. S/p L4-5 Lumbar Hardware Removal and L3-S1 ISF placement by Reyes Norman on 06/26/18. Continue BINDER SORTER Dilaudid as needed for pain and Zofran as needed for nausea. Continue IV fluids and postoperative antibiotic. Physical therapy. -Chronic lower back pain. Dr. Lux is following in pain management consult atcounts include [facility] the [facility]. -Hypertension, continue atenolol. -COPD, continue budesonide -Severe insomnia Critical care time spent is 30 minutes. Further recommendations based on clinical course. Plan of care discussed with Dr. Gibbons. Result Diagram: 06/27/18 0428 06/27/18 0428 Results 24hrs Laboratory Tests Test 06/27/18 04:28 White Blood Count 8.9 # Red Blood Count 3.29 L Hemoglobin 11.0 L Hematocrit 32.1 L Mean Corpuscular Volume 97.6 Mean Corpuscular Hemoglobin 33.4 H Mean Corpuscular Hemoglobin Concent 34.3 Red Cell Distribution Width 12.6 Platelet Count 243 Mean Platelet Volume 10.1 Immature Granulocytes % 0.500 H Neutrophils % 81.0 H Lymphocytes % 9.1 L Monocytes % 8.1 Eosinophils % 0.8 Basophils % 0.5 Nucleated Red Blood Cells % 0.0 Immature Granulocytes # 0.040 H Neutrophils # 7.2 Lymphocytes # 0.8 Monocytes # 0.7 Eosinophils # 0.1 Basophils # 0.0 Nucleated Red Blood Cells # 0.0 Sodium Level 134 L Potassium Level 3.9 Chloride Level 106 Carbon Dioxide Level 23 Anion Gap 5 Blood Urea Nitrogen 7 Creatinine 0.89 Est Glomerular Filtrat Rate mL/min > 60 Glucose Level 115 Calcium Level 8.5 Exam/Review of Systems Exam Vitals Vital Signs Date Temp Pulse Resp B/P (MAP) Pulse Ox O2 O2 Flow FiO2 Time Delivery Rate 06/27/18 98.4 84 17 93/67 (76) 93 09:00 06/27/18 2.0 08:16 06/27/18 Nasal 08:16 Cannula 06/26/18 21 13:09 Intake and Output 06/26/18 06/26/18 06/27/18 1515:00 23:00 07:00 IntakeIntake Total 905 ml 1210 ml 950 ml OutputOutput Total 520 ml 380 ml 365 ml BalanceBalance 385 ml 830 ml 585 ml Exam Constitutional: alert, oriented Respiratory: clear to auscultation Cardiovascular: regular rate and rhythm Gastrointestinal: soft, other (Status post surgery) Musculoskeletal: other (Status post surgery, JOHN drain) Extremities: normal pulses Neurological: nl mental status Skin: nl turgor Results Results 24hrs Laboratory Tests Test 06/27/18 04:28 White Blood Count 8.9 # Red Blood Count 3.29 L Hemoglobin 11.0 L Hematocrit 32.1 L Mean Corpuscular Volume 97.6 Mean Corpuscular Hemoglobin 33.4 H Mean Corpuscular Hemoglobin Concent 34.3 Red Cell Distribution Width 12.6 Platelet Count 243 Mean Platelet Volume 10.1 Immature Granulocytes % 0.500 H Neutrophils % 81.0 H Lymphocytes % 9.1 L Monocytes % 8.1 Eosinophils % 0.8 Basophils % 0.5 Nucleated Red Blood Cells % 0.0 Immature Granulocytes # 0.040 H Neutrophils # 7.2 Lymphocytes # 0.8 Monocytes # 0.7 Eosinophils # 0.1 Basophils # 0.0 Nucleated Red Blood Cells # 0.0 Sodium Level 134 L Potassium Level 3.9 Chloride Level 106 Carbon Dioxide Level 23 Anion Gap 5 Blood Urea Nitrogen 7 Creatinine 0.89 Est Glomerular Filtrat Rate mL/min > 60 Glucose Level 115 Calcium Level 8.5 Medications Medication Current Medications Al Hydrox/Mg Hydrox/Simethicone (Mag-Al Plus) 15 ml Q4H PRN PO .CONSTIPATION; Start 06/25/18 at 19:00 IV Flush (NS 3 ml) 3 ml PER PROTOCOL IV ; Start 06/25/18 at 19:00 Naloxone HCl (Narcan) 0.2 mg Q2M PRN IV RR 8 BREATHS/MIN OR LESS; Start 06/25/18 at 19:00 Cefazolin Sodium/ Dextrose 50 ml @ 100 mls/hr Q8 IVPB Last administered on 06/27/18 05:40; Admin Dose 100 MLS/HR; Start 06/25/18 at 22:00; Stop 06/28/18 at 22:00 Potassium Chloride/Sodium Chloride 1,000 ml @ 100 mls/hr Q10H IV Last adminis tered on 06/27/18 01:06; Admin Dose 100 MLS/HR; Start 06/25/18 at 19:00 Lorazepam (Ativan) 0.5 mg Q4 PRN IV AGITATION/ANXIETY Last administered on 06/26/18 22:43; Admin Dose 0.5 MG; Start 06/26/18 at 11:30 Atenolol (Tenormin) 100 mg DAILY PO Last administered on 06/26/18 14:18; Admin Dose 100 MG; Start 06/26/18 at 11:30 Montelukast Sodium (Singulair) 10 mg QHS PO Last administered on 06/26/18 22:43; Admin Dose 10 MG; Start 06/26/18 at 21:00 Quetiapine Fumarate (Seroquel) 400 mg HS PO Last administered on 06/26/18 21:09; Admin Dose 400 MG; Start 06/26/18 at 21:00 Tiotropium [place] (Spiriva) 1 inh DAILY INH Last administered on 06/27/18 09:28; Admin Dose 1 INH; Start 06/26/18 at 11:30 Lamotrigine (Lamictal) 50 mg DAILY PO Last administered on 06/27/18 09:22; Admin Dose 50 MG; Start 06/26/18 at 11:30 Albuterol/ Ipratropium (Duoneb) 3 ml Q4H RESP THERAPY PRN HHN SHORTNESS OF B REATH Last administered on 06/26/18 13:08; Admin Dose 3 ML; Start 06/26/18 at 12:00 Arformoterol Tartrate (Brovana (Neb)) 2 ml BID RESP THERAPY INH Last administered on 06/27/18 08:16; Admin Dose 2 ML; Start 06/26/18 at 13:00 Budesonide (Pulmicort (Neb)) 0.5 mg Q12H RESP THERAPY INH Last administered on 06/27/18at 08:16; Admin Dose 0.5 MG; Start 06/26/18 at 13:00 Clonazepam (Klonopin) 1 mg HS PRN PO INSOMNIA Last administered on 06/26/18at 21:10; Admin Dose 1 MG; Start 06/26/18 at 16:30 Hydromorphone HCl (Dilaudid BINDER SORTER) 1 mg Q4PCA IV ; Start 06/27/18 at 10:30 JORDI ROBLES June 27, 2018 10:45
--- NOTE | 2018-06-27 11:57 | PN ---
Date/Time of Note Date/Time of Note DATE: 06/27/18 TIME: 11:53 Assessment/Plan VTE Prophylaxis Risk score (from Nsg)>0 risk: 1 SCD applied (from Ns): Yes SCD contraindicated: low risk/ambulating Pharmacological prophylaxis: NA/contraindicated Pharm contraindication: low risk/ambulating Lines/Catheters IV Catheter Type (from Nrsg): Saline Lock Central line still needed: No Urinary Cath still in place: No Assessment/Plan Assessment/Plan Neurosurgery S: s/p ALIF L3-4, L5-S1.POD #2 s/p posterior L4-5 hardware removal with L3-S1 ISF Placement. POD #1 post op images stable lower ext. radic improving, no new weakness Plan LSO brace when oob DC marcia drain in 1-2 days okay to downgrade Pain management following dc meza cath when ambulating more Result Diagram: 06/27/18 0428 06/27/18 0428 Results 24hrs Laboratory Tests Test 06/27/18 04:28 White Blood Count 8.9 # Red Blood Count 3.29 L Hemoglobin 11.0 L Hematocrit 32.1 L Mean Corpuscular Volume 97.6 Mean Corpuscular Hemoglobin 33.4 H Mean Corpuscular Hemoglobin Concent 34.3 Red Cell Distribution Width 12.6 Platelet Count 243 Mean Platelet Volume 10.1 Immature Granulocytes % 0.500 H Neutrophils % 81.0 H Lymphocytes % 9.1 L Monocytes % 8.1 Eosinophils % 0.8 Basophils % 0.5 Nucleated Red Blood Cells % 0.0 Immature Granulocytes # 0.040 H Neutrophils # 7.2 Lymphocytes # 0.8 Monocytes # 0.7 Eosinophils # 0.1 Basophils # 0.0 Nucleated Red Blood Cells # 0.0 Sodium Level 134 L Potassium Level 3.9 Chloride Level 106 Carbon Dioxide Level 23 Anion Gap 5 Blood Urea Nitrogen 7 Creatinine 0.89 Est Glomerular Filtrat Rate mL/min > 60 Glucose Level 115 Calcium Level 8.5 Subjective 24 Hr Interval Summary Free Text/Dictation Neurosurgery S: s/p ALIF L3-4, L5-S1.POD #2 s/p posterior L4-5 hardware removal with L3-S1 ISF Placement. POD #1 Exam/Review of Systems Exam Vitals Vital Signs Date Temp Pulse Resp B/P (MAP) Pulse Ox O2 O2 Flow FiO2 Time Delivery Rate 06/27/18 98.4 84 17 93/67 (76) 93 09:00 06/27/18 2.0 08:16 06/27/18 Nasal 08:16 Cannula 06/26/18 21 13:09 Intake and Output 06/26/18 06/26/18 06/27/18 1515:00 23:00 07:00 IntakeIntake Total 905 ml 1210 ml 950 ml OutputOutput Total 520 ml 380 ml 365 ml BalanceBalance 385 ml 830 ml 585 ml Neurological: other (MS: AAOX3 CN: PERRL M: FC x 4 , no focal def. surgical site: CDI MARCIA drain: moderate drainage) Results Results 24hrs Laboratory Tests Test 06/27/18 04:28 White Blood Count 8.9 # Red Blood Count 3.29 L Hemoglobin 11.0 L Hematocrit 32.1 L Mean Corpuscular Volume 97.6 Mean Corpuscular Hemoglobin 33.4 H Mean Corpuscular Hemoglobin Concent 34.3 Red Cell Distribution Width 12.6 Platelet Count 243 Mean Platelet Volume 10.1 Immature Granulocytes % 0.500 H Neutrophils % 81.0 H Lymphocytes % 9.1 L Monocytes % 8.1 Eosinophils % 0.8 Basophils % 0.5 Nucleated Red Blood Cells % 0.0 Immature Granulocytes # 0.040 H Neutrophils # 7.2 Lymphocytes # 0.8 Monocytes # 0.7 Eosinophils # 0.1 Basophils # 0.0 Nucleated Red Blood Cells # 0.0 Sodium Level 134 L Potassium Level 3.9 Chloride Level 106 Carbon Dioxide Level 23 Anion Gap 5 Blood Urea Nitrogen 7 Creatinine 0.89 Est Glomerular Filtrat Rate mL/min > 60 Glucose Level 115 Calcium Level 8.5 Medications Medication Current Medications Al Hydrox/Mg Hydrox/Simethicone (Mag-Al Plus) 15 ml Q4H PRN PO .CONSTIPATION; Start 06/25/18 at 19:00 IV Flush (NS 3 ml) 3 ml PER PROTOCOL IV ; Start 06/25/18 at 19:00 Naloxone HCl (Narcan) 0.2 mg Q2M PRN IV RR 8 BREATHS/MIN OR LESS; Start 06/25/18 at 19:00 Cefazolin Sodium/ Dextrose 50 ml @ 100 mls/hr Q8 IVPB Last administered on 06/27/18at 05:40; Admin Dose 100 MLS/HR; Start 06/25/18 at 22:00; Stop 06/28/18 at 22:00 Potassium Chloride/Sodium Chloride 1,000 ml @ 100 mls/hr Q10H IV Last administered on 06/27/18 01:06; Admin Dose 100 MLS/HR; Start 06/25/18 at 19:00 Lorazepam (Ativan) 0.5 mg Q4 PRN IV AGITATION/ANXIETY Last administered on 06/26/18 22:43; Admin Dose 0.5 MG; Start 06/26/18 at 11:30 Atenolol (Tenormin) 100 mg DAILY PO Last administered on 06/26/18 14:18; Admin Dose 100 MG; Start 06/26/18 at 11:30 Montelukast Sodium (Singulair) 10 mg QHS PO Last administered on 06/26/18 22:43; Admin Dose 10 MG; Start 06/26/18 at 21:00 Quetiapine Fumarate (Seroquel) 400 mg HS PO Last administered on 06/26/18 21:09; Admin Dose 400 MG; Start 06/26/18 at 21:00 Tiotropium [place] (Spiriva) 1 inh DAILY INH Last administered on 06/27/18 09:28; Admin Dose 1 INH; Start 06/26/18 at 11:30 Lamotrigine (Lamictal) 50 mg DAILY PO Last administered on 06/27/18 09:22; A dmin Dose 50 MG; Start 06/26/18 at 11:30 Albuterol/ Ipratropium (Duoneb) 3 ml Q4H RESP THERAPY PRN HHN SHORTNESS OF BREATH Last administered on 06/26/18 13:08; Admin Dose 3 ML; Start 06/26/18 at 12:00 Arformoterol Tartrate (Brovana (Neb)) 2 ml BID RESP THERAPY INH Last administered on 06/27/18 08:16; Admin Dose 2 ML; Start 06/26/18 at 13:00 Budesonide (Pulmicort (Neb)) 0.5 mg Q12H RESP THERAPY INH Last administered on 06/27/18 08:16; Admin Dose 0.5 MG; Start 06/26/18 at 13:00 Clonazepam (Klonopin) 1 mg HS PRN PO INSOMNIA Last administered on 06/26/18 21:10; Admin Dose 1 MG; Start 06/26/18 at 16:30 Hydromorphone HCl (Dilaudid AQUATIC HABITAT BIOLOGIST) 1 mg Q4PCA IV ; Start 06/27/18 at 10:30 NAHOMI GOMEZ MD June 27, 2018 11:57
--- NOTE | 2018-06-27 16:21 | RADRPT ---
Vent Rate: 62 bpm RR Interval: 960 msec CA Interval: 128 msec QRS Duration: 77 msec QT Interval: 476 msec QTC Interval: 486 msec P-R-T Bude: 67 - 39 - 13 degrees Sinus rhythm...normal P axis, V-rate 50- 99 Electronically Signed By: Juan Rizvi
[2018-06-27] MEDS: MONTELUKAST 10 MG TAB PO SCH (20:36)
[2018-06-27] MEDS: ACETAMINOPHEN 325 MG TAB PO PRN (20:36)
[2018-06-27] MEDS: QUETIAPINE 100 MG TAB PO SCH (21:58)
[2018-06-27] MEDS: clonAZEPAM 0.5 MG TAB PO PRN (22:21)
[2018-06-28] VITALS (9 sets, daily range): BP systolic 108–121; BP diastolic 60–74; PULSE 78–95; RESP 18–19
[2018-06-28] MEDS: CEFAZOLIN 2 GM/50 ML (PMX) 50 ML IVPB SCH ×3 (05:59→21:49)
[2018-06-28] MEDS: NS + KCL 20 MEQ 1,000 ML IV SCH ×2 (07:00→16:09)
[2018-06-28] MEDS: HYDROmorphONE 0.2 MG/ML PCA IV SCH (07:18)
[2018-06-28] MEDS ORDERED: HYDROmorphONE 0.2 MG/ML PCA IV SCH ×2 (08:00→18:00)
[2018-06-28] MEDS: LAMOTRIGINE 25 MG TAB PO SCH (08:56)
[2018-06-28] MEDS: ATENOLOL 100 MG TAB PO SCH (08:57)
[2018-06-28] MEDS: TIOTROPIUM 18 MCG CAPSULE INHA DEV INH SCH (09:00)
[2018-06-28] MEDS: ARFORMOTEROL TARTRATE 15MCG/2 ML AMP INH SCH ×2 (09:43→22:21)
[2018-06-28] MEDS: BUDESONIDE (NEB) 0.5MG/2ML AMP INH SCH ×2 (09:43→22:21)
--- NOTE | 2018-06-28 14:19 | PN ---
Date/Time of Note Date/Time of Note DATE: 06/28/18 TIME: 14:14 Assessment/Plan VTE Prophylaxis Risk score (from Ns)>0 risk: 11 SCD applied (from Ns): Yes Pharmacological prophylaxis: NA/contraindicated Pharm contraindication: surgical contra Lines/Catheters IV Catheter Type (from Nrsg): Saline Lock Urinary Cath still in place: Yes Reason Cath still needed: urinary retention Assessment/Plan Hospital Course Patient is still with significant amount of pain and slow progress with PT will DC Pierre continue PT continue pain management per Dr. Lux recommendations. Assessment/Plan -Mechanical LBP and LE radiculopathy. S/p ALIF L3,[address] Norman with anterior peritoneal exposure by Dr. Atkinson on 06/25/18. S/p L4-5 Lumbar Hardware Removal and L3-S1 ISF placement by Reyes Norman on 06/26/18. Continue ENVIRONMENTAL REMEDIATION CONSULTANT Dilaudid as needed for pain and Zofran as needed for nausea. Continue IV fluids and postoperative antibiotic. Physical therapy. -Chronic lower back pain. Dr. Lux is following in pain management consultation. -Hypertension, continue atenolol. -COPD, continue budesonide -Severe insomnia Further recommendations based on clinical course. Plan of care discussed with Dr. Gibbons. Result Diagram: 06/28/18 0510 06/28/18 0745 Results 24hrs Laboratory Tests Test 06/28/18 05:00 06/28/18 05:10 06/28/18 07:45 Urine Color YELLOW Urine Clarity CLEAR Urine pH 5.0 Urine Specific [place] 1.011 Urine Ketones 1+ H Urine Nitrite NEGATIVE Urine Bilirubin NEGATIVE Urine Urobilinogen NEGATIVE Urine Leukocyte Esterase NEGATIVE Urine Hemoglobin NEGATIVE Urine Glucose NEGATIVE Urine Total Protein NEGATIVE White Blood Count 6.7 # Red Blood Count 2.69 L Hemoglobin 9.1 L Hematocrit 26.8 L Mean Corpuscular Volume 99.6 Mean Corpuscular Hemoglobin 33.8 H Mean Corpuscular Hemoglobin Concent 34.0 Red Cell Distribution Width 12.6 Platelet Count 196 Mean Platelet Volume 10.2 Immature Granulocytes % 0.600 H Neutrophils % 80.9 H Lymphocytes % 10.2 L Monocytes % 6.1 Eosinophils % 1.8 Basophils % 0.4 Nucleated Red Blood Cells % 0.0 Immature Granulocytes # 0.040 H Neutrophils # 5.4 Lymphocytes # 0.7 L Monocytes # 0.4 Eosinophils # 0.1 Basophils # 0.0 Nucleated Red Blood Cells # 0.0 Sodium Level 138 Potassium Level 3.9 Chloride Level 107 Carbon Dioxide Level 24 Anion Gap 7 Blood Urea Nitrogen 5 L Creatinine 0.76 Est Glomerular Filtrat Rate mL/min > 60 Glucose Level 104 Calcium Level 8.3 L Exam/Review of Systems Exam Vitals Vital Signs Date Temp Pulse Resp B/P (MAP) Pulse Ox O2 O2 Flow FiO2 Time Delivery Rate 06/28/18 79 12:00 06/28/18 98.6 18 110/64 97 11:15 (79) 06/28/18 2.0 10:41 06/28/18 Nasal 09:51 Cannula 06/26/18 21 13:09 Intake and Output 06/27/18 06/27/18 06/28/18 1515:00 23:00 07:00 IntakeIntake Total 560 ml 300 ml OutputOutput Total 1060 ml 1950 ml BalanceBalance -500 ml -1650 ml Exam Constitutional: alert, oriented Respiratory: clear to auscultation Cardiovascular: regular rate and rhythm Gastrointestinal: soft, other (Status post surgery) Musculoskeletal: other (Status post surgery, JOHN drain) Extremities: normal pulses Neurological: nl mental status Skin: nl turgor Results Results 24hrs Laboratory Tests Test 06/28/18 05:00 06/28/18 05:10 06/28/18 07:45 Urine Color YELLOW Urine Clarity CLEAR Urine pH 5.0 Urine Specific [place] 1.011 Urine Ketones 1+ H Urine Nitrite NEGATIVE Urine Bilirubin NEGATIVE Urine Urobilinogen NEGATIVE Urine Leukocyte Esterase NEGATIVE Urine Hemoglobin NEGATIVE Urine Glucose NEGATIVE Urine Total Protein NEGATIVE White Blood Count 6.7 # Red Blood Count 2.69 L Hemoglobin 9.1 L Hematocrit 26.8 L Mean Corpuscular Volume 99.6 Mean Corpuscular Hemoglobin 33.8 H Mean Corpuscular Hemoglobin Concent 34.0 Red Cell Distribution Width 12.6 Platelet Count 196 Mean Platelet Volume 10.2 Immature Granulocytes % 0.600 H Neutrophils % 80.9 H Lymphocytes % 10.2 L Monocytes % 6.1 Eosinophils % 1.8 Basophils % 0.4 Nucleated Red Blood Cells % 0.0 Immature Granulocytes # 0.040 H Neutrophils # 5.4 Lymphocytes # 0.7 L Monocytes # 0.4 Eosinophils # 0.1 Basophils # 0.0 Nucleated Red Blood Cells # 0.0 Sodium Level 138 Potassium Level 3.9 Chloride Level 107 Carbon Dioxide Level 24 Anion Gap 7 Blood Urea Nitrogen 5 L Creatinine 0.76 Est Glomerular Filtrat Rate mL/min > 60 Glucose Level 104 Calcium Level 8.3 L Medications Medication Current Medications Al Hydrox/Mg Hydrox/Simethicone (Mag-Al Plus) 15 ml Q4H PRN PO .CONSTIPATION; Start 06/25/18 at 19:00 IV Flush (NS 3 ml) 3 ml PER PROTOCOL IV ; Start 06/25/18 at 19:00 Naloxone HCl (Narcan) 0.2 mg Q2M PRN IV RR 8 BREATHS/MIN OR LESS; Start 06/25/18 at 19:00 Cefazolin Sodium/ Dextrose 50 ml @ 100 mls/hr Q8 IVPB Last administered on 06/28/18 05:59; Admin Dose 100 MLS/HR; Start 06/25/18 at 22:00; Stop 06/28/18 at 22:00 Potassium Chloride/Sodium Chloride 1,000 ml @ 100 mls/hr Q10H IV Last admini stered on 06/27/18at 23:37; Admin Dose 100 MLS/HR; Start 06/25/18 at 19:00 Lorazepam (Ativan) 0.5 mg Q4 PRN IV AGITATION/ANXIETY Last administered on 06/26/18 22:43; Admin Dose 0.5 MG; Start 06/26/18 at 11:30 Atenolol (Tenormin) 100 mg DAILY PO Last administered on 06/28/18 08:57; Admin Dose 100 MG; Start 06/26/18 at 11:30 Montelukast Sodium (Singulair) 10 mg QHS PO Last administered on 06/27/18 20:36; Admin Dose 10 MG; Start 06/26/18 at 21:00 Quetiapine Fumarate (Seroquel) 400 mg HS PO Last administered on 06/27/18 21:58; Admin Dose 400 MG; Start 06/26/18 at 21:00 Tiotropium [place] (Spiriva) 1 inh DAILY INH Last administered on 06/28/18 09:00; Admin Dose 1 INH; Start 06/26/18 at 11:30 Lamotrigine (Lamictal) 50 mg DAILY PO Last administered on 06/28/18 08:56; Admin Dose 50 MG; Start 06/26/18 at 11:30 Albuterol/ Ipratropium (Duoneb) 3 ml Q4H RESP THERAPY PRN HHN SHORTNESS OF BREATH Last administered on 06/26/18 13:08; Admin Dose 3 ML; Start 06/26/18 at 12:00 Arformoterol Tartrate (Brovana (Neb)) 2 ml BID RESP THERAPY INH Last administered on 06/28/18 09:43; Admin Dose 2 ML; Start 06/26/18 at 13:00 Budesonide (Pulmicort (Neb)) 0.5 mg Q12H RESP THERAPY INH Last administered on 06/28/18 09:43; Admin Dose 0.5 MG; Start 06/26/18 at 13:00 Clonazepam (Klonopin) 1 mg HS PRN PO INSOMNIA Last administered on 06/27/18 22:21; Admin Dose 1 MG; Start 06/26/18 at 16:30 Acetaminophen (Tylenol Tab) 650 mg Q4H PRN PO MILD PAIN(1-3)OR ELEVATED TEMP Last administered on 06/27/18 20:36; Admin Dose 650 MG; Start 06/27/18 at 20:00 Hydromorphone HCl (Dilaudid ENVIRONMENTAL REMEDIATION CONSULTANT) Q4PCA IV Last administered on 06/28/18 14:04; Admin Dose 0.4 MG; Start 06/28/18 at 08:00 JORDI ROBLES June 28, 2018 14:19
[2018-06-28] MEDS: LORAZEPAM 2 MG INJ IV PRN (15:23)
[2018-06-28] MEDS: QUETIAPINE 100 MG TAB PO SCH (21:46)
[2018-06-28] MEDS: MONTELUKAST 10 MG TAB PO SCH (21:46)
[2018-06-28] MEDS: clonAZEPAM 0.5 MG TAB PO PRN (22:02)
[2018-06-29] VITALS (10 sets, daily range): BP systolic 96–121; BP diastolic 61–76; PULSE 72–96; RESP 17–18
--- NOTE | 2018-06-29 05:53 | CONS ---
Assessment/Plan Assessment/Plan Assessment/Plan (Daily) Stated note for She is status post anterior retroperitoneal exposure interbody fusion of lumbosacral spine at levels L3-L4, L5-S1 Lumbar sacral spine postop pain Currently on GAMEPLAY ENGINEER we will adjust to include a continuous as well as a demand dose History of bronchitis On HHN's Insomnia We will adjust her sleeping meds and add on low-dose of Klonopin Doing well, will adjust her GAMEPLAY ENGINEER and slowly start taking her down off the GAMEPLAY ENGINEER and transition to oral medications beginning today. Consultation Date/Type/Reason Admit Date/Time June 25, 2018 at 13:19 Initial Consult Date Date/Time of Note DATE: 06/29/18 TIME: 05:51 Exam/Review of Systems Exam Vitals Vital Signs Date Temp Pulse Resp B/P (MAP) Pulse Ox O2 O2 Flow FiO2 Time Delivery Rate 06/29/18 3.0 04:03 06/29/18 98.7 89 18 113/74 95 04:00 (87) 06/28/18 Nasal 22:21 Cannula 06/26/18 21 13:09 Intake and Output 06/28/18 06/28/18 06/29/18 1515:00 23:00 07:00 IntakeIntake Total 600 ml OutputOutput Total 530 ml BalanceBalance 70 ml Constitutional: alert, oriented, well developed Psych: anxiety Neurological: HURRICANE TRACKER II-XII intact, nl mental status, nl speech, nl strength Results Result Diagram: 06/28/18 0510 06/28/18 0745 Results 24hrs Laboratory Tests Test 06/28/18 07:45 Sodium Level 138 Potassium Level 3.9 Chloride Level 107 Carbon Dioxide Level 24 Anion Gap 7 Blood Urea Nitrogen 5 L Creatinine 0.76 Est Glomerular Filtrat Rate mL/min > 60 Glucose Level 104 Calcium Level 8.3 L Medications Medication Current Medications Al Hydrox/Mg Hydrox/Simethicone (Mag-Al Plus) 15 ml Q4H PRN PO .CONSTIPATION; Start 06/25/18 at 19:00 IV Flush (NS 3 ml) 3 ml PER PROTOCOL IV ; Start 06/25/18 at 19:00 Naloxone HCl (Narcan) 0.2 mg Q2M PRN IV RR 8 BREATHS/MIN OR LESS; Start 06/25/18 at 19:00 Lorazepam (Ativan) 0.5 mg Q4 PRN IV AGITATION/ANXIETY Last administered on 06/28/18 15:23; Admin Dose 0.5 MG; Start 06/26/18 at 11:30 Atenolol (Tenormin) 100 mg DAILY PO Last administered on 06/28/18 08:57; Admin Dose 100 MG; Start 06/26/18 at 11:30 Montelukast Sodium (Singulair) 10 mg QHS PO Last administered on 06/28/18 21:46; Admin Dose 10 MG; Start 06/26/18 at 21:00 Quetiapine Fumarate (Seroquel) 400 mg HS PO Last administered on 06/28/18 21:46; Admin Dose 400 MG; Start 06/26/18 at 21:00 Tiotropium [place] (Spiriva) 1 inh DAILY INH Last administered on 06/28/18 09:00; Admin Dose 1 INH; Start 06/26/18 at 11:30 Lamotrigine (Lamictal) 50 mg DAILY PO Last administered on 06/28/18 08:56; Admin Dose 50 MG; Start 06/26/18 at 11:30 Albuterol/ Ipratropium (Duoneb) 3 ml Q4H RESP THERAPY PRN HHN SHORTNESS OF BREATH Last administered on 06/26/18 13:08; Admin Dose 3 ML; Start 06/26/18 at 12:00 Arformoterol Tartrate (Brovana (Neb)) 2 ml BID RESP THERAPY INH Last administered on 06/28/18 22:21; Admin Dose 2 ML; Start 06/26/18 at 13:00 Budesonide (Pulmicort (Neb)) 0.5 mg Q12H RESP THERAPY INH Last administered on 06/28/18 22:21; Admin Dose 0.5 MG; Start 06/26/18 at 13:00 Clonazepam (Klonopin) 1 mg HS PRN PO INSOMNIA Last administered on 06/28/18 22:02; Admin Dose 1 MG; Start 06/26/18 at 16:30 Acetaminophen (Tylenol Tab) 650 mg Q4H PRN PO MILD PAIN(1-3)OR ELEVATED TEMP Last administered on 06/27/18 20:36; Admin Dose 650 MG; Start 06/27/18 at 20:00 Hydromorphone HCl (Dilaudid GAMEPLAY ENGINEER) Q4PCA IV Last administered on 06/28/18at 20:11; Admin Dose 6 MG; Start 06/28/18 at 18:00 MARYSE CHAVARRIA June 29, 2018 05:53
[2018-06-29] MEDS: HYDROmorphONE 0.2 MG/ML PCA IV SCH ×2 (06:05→16:05)
[2018-06-29] MEDS: BUDESONIDE (NEB) 0.5MG/2ML AMP INH SCH ×2 (08:02→20:07)
[2018-06-29] MEDS: TIOTROPIUM 18 MCG CAPSULE INHA DEV INH SCH (08:36)
[2018-06-29] MEDS: LAMOTRIGINE 25 MG TAB PO SCH (08:36)
[2018-06-29] MEDS: ATENOLOL 100 MG TAB PO SCH (08:37)
[2018-06-29] MEDS: ARFORMOTEROL TARTRATE 15MCG/2 ML AMP INH SCH ×2 (10:02→20:07)
[2018-06-29] MEDS: LORAZEPAM 2 MG INJ IV PRN (16:01)
--- NOTE | 2018-06-29 17:25 | PN ---
DATE: 06/29/2018 SUBJECTIVE: Follow up on postop ALIF of the lower back with anterior peritoneal exposure by Dr. Cody ruiz on 06/25/2018, status post L4-L5 lumbar hardware removal and L3 through S1 ____ placement by Dr Radha Norman on 06/26. The patient continues to have significant postoperative pain. The patient was see n by Dr. Falcon today and he adjusted the PRODUCE FIELD MERCHANDISER. The patient denied any chest pain or shortness of b reath, no reported fever or chills. PHYSICAL EXAMINATION: GENERAL: The patient is awake, alert. VITAL SIGNS: Temperature 99.2, pulse 72, respiration 19, blood pressure 96/62, O2 96% ____ nasal can nula. HEENT: No eye discharge or redness. Conjunctivae normal. NECK: No mass. CHEST: Fairly clear. CARDIOVASCULAR: S1, S2 normal, no murmur. ABDOMEN: Soft. EXTREMITIES: No edema. NEUROLOGIC: The patient is awake, alert. IMPRESSION 1. Mechanical low back pain and lower extremity radiculopathy, status post ALIF L3-L4 and L5-S1 by Constantine Norman and the anterior peritoneal exposure by Dr. Atkinson on 06/25/2018, status post L4-L5 lumba r hardware removal and L3-S1 ____ placement by Dr. Norman on 06/26/2018. 2. Hypertension. 3. Chronic pain syndrome. 4. COPD. Continue postop care. Dictated By: SRIKANTH LU/MANUEL Conf#: [id number] DID#: [id number]
[2018-06-29] MEDS ORDERED: PATIENT'S OWN MEDICATION XX SCH (17:30)
--- NOTE | 2018-06-29 18:48 | PN ---
Date/Time of Note Date/Time of Note DATE: 06/29/18 TIME: 18:42 Assessment/Plan VTE Prophylaxis Risk score (from Ns)>0 risk: 9 SCD applied (from Ns): Yes SCD contraindicated: low risk/ambulating Pharmacological prophylaxis: NA/contraindicated Pharm contraindication: low risk/ambulating Lines/Catheters IV Catheter Type (from Nrsg): Saline Lock Central line still needed: No Urinary Cath still in place: No Assessment/Plan Hospital Course Neurosurgery Progress patient doing well ambulating well with pt/ot surgical site: CDI Plan dc marcia drain pt/ot dc marcia drain pain management dc planning okay from NS point of view dc home vs rehab okay with NS Result Diagram: 06/28/18 0510 06/28/18 0745 Subjective 24 Hr Interval Summary Free Text/Dictation Neurosurgery S: doing well Exam/Review of Systems Exam Vitals Vital Signs Date Temp Pulse Resp B/P (MAP) Pulse Ox O2 O2 Flow FiO2 Time Delivery Rate 06/29/18 83 16:35 06/29/18 18 16:08 06/29/18 99.0 106/61 99 15:43 (76) 06/29/18 2.0 10:04 06/29/18 Nasal 10:02 Cannula 06/26/18 21 13:09 Intake and Output 06/28/18 06/28/18 06/29/18 1515:00 23:00 07:00 IntakeIntake Total 600 ml 400 ml OutputOutput Total 530 ml 815 ml BalanceBalance 70 ml -415 ml Neurological: other (MS: AAOX4 CN: PERRL M: 06/10 strength x 4 ) Medications Medication Current Medications Al Hydrox/Mg Hydrox/Simethicone (Mag-Al Plus) 15 ml Q4H PRN PO .CONSTIPATION; Start 06/25/18 at 19:00 IV Flush (NS 3 ml) 3 ml PER PROTOCOL IV ; Start 06/25/18 at 19:00 Naloxone HCl (Narcan) 0.2 mg Q2M PRN IV RR 8 BREATHS/MIN OR LESS; Start 06/25/18 at 19:00 Lorazepam (Ativan) 0.5 mg Q4 PRN IV AGITATION/ANXIETY Last administered on 06/29/18at 16:01; Admin Dose 0.5 MG; Start 06/26/18 at 11:30 Atenolol (Tenormin) 100 mg DAILY PO Last administered on 06/29/18 08:37; Admin Dose 100 MG; Start 06/26/18 at 11:30 Montelukast Sodium (Singulair) 10 mg QHS PO Last administered on 06/28/18 21:46; Admin Dose 10 MG; Start 06/26/18 at 21:00 Quetiapine Fumarate (Seroquel) 400 mg HS PO Last administered on 06/28/18 21:46; Admin Dose 400 MG; Start 06/26/18 at 21:00 Tiotropium [place] (Spiriva) 1 inh DAILY INH Last administered on 06/29/18 08:36; Admin Dose 1 INH; Start 06/26/18 at 11:30 Lamotrigine (Lamictal) 50 mg DAILY PO Last administered on 06/29/18 08:36; Admin Dose 50 MG; Start 06/26/18 at 11:30 Albuterol/ Ipratropium (Duoneb) 3 ml Q4H RESP THERAPY PRN HHN SHORTNESS OF BREATH Last administered on 06/26/18 13:08; Admin Dose 3 ML; Start 06/26/18 at 12:00 Arformoterol Tartrate (Brovana (Neb)) 2 ml BID RESP THERAPY INH Last administered on 06/29/18 10:02; Admin Dose 2 ML; Start 06/26/18 at 13:00 Budesonide (Pulmicort (Neb)) 0.5 mg Q12H RESP THERAPY INH Last administered on 06/29/18 08:02; Admin Dose 0.5 MG; Start 06/26/18 at 13:00 Clonazepam (Klonopin) 1 mg HS PRN PO INSOMNIA Last administered on 06/28/18 22:02; Admin Dose 1 MG; Start 06/26/18 at 16:30 Acetaminophen (Tylenol Tab) 650 mg Q4H PRN PO MILD PAIN(1-3)OR ELEVATED TEMP Last administered on 06/27/18 20:36; Admin Dose 650 MG; Start 06/27/18 at 20:00 Hydromorphone HCl (Dilaudid [place]) Q4PCA IV Last administered on 06/29/18 16:05; Admin Dose 6 MG; Start 06/29/18 at 06:00 Miscellaneous Information 1 ea NOTE XX ; Start 06/29/18 at 17:30 NAHOMI GOMEZ MD June 29, 2018 18:48
[2018-06-29] MEDS: MONTELUKAST 10 MG TAB PO SCH (22:25)
[2018-06-29] MEDS: QUETIAPINE 100 MG TAB PO SCH (22:25)
[2018-06-29] MEDS: clonAZEPAM 0.5 MG TAB PO PRN (22:25)
[2018-06-30] VITALS (10 sets, daily range): BP systolic 106–129; BP diastolic 68–79; PULSE 74–88; RESP 18–20
[2018-06-30] MEDS: HYDROmorphONE 0.2 MG/ML PCA IV SCH ×2 (04:22→15:27)
[2018-06-30] MEDS: ARFORMOTEROL TARTRATE 15MCG/2 ML AMP INH SCH ×2 (07:28→20:13)
[2018-06-30] MEDS: BUDESONIDE (NEB) 0.5MG/2ML AMP INH SCH ×2 (07:28→20:14)
[2018-06-30] MEDS: LAMOTRIGINE 25 MG TAB PO SCH (08:29)
[2018-06-30] MEDS: TIOTROPIUM 18 MCG CAPSULE INHA DEV INH SCH (08:29)
[2018-06-30] MEDS: ATENOLOL 100 MG TAB PO SCH (08:30)
[2018-06-30] MEDS: DIPHENHYDRAMINE 50 MG INJ IV PRN (18:26)
[2018-06-30] MEDS: ACETAMINOPHEN 325 MG TAB PO PRN (20:17)
[2018-06-30] MEDS: QUETIAPINE 100 MG TAB PO SCH (20:17)
[2018-06-30] MEDS: MONTELUKAST 10 MG TAB PO SCH (20:17)
[2018-06-30] MEDS: clonAZEPAM 0.5 MG TAB PO PRN (21:26)
--- NOTE | 2018-06-30 21:27 | PN ---
Date/Time of Note Date/Time of Note DATE: 06/30/18 TIME: 21:27 Assessment/Plan VTE Prophylaxis Risk score (from Ns)>0 risk: 8 SCD applied (from Ns): Yes SCD contraindicated: other Pharmacological prophylaxis: other Pharm contraindication: other Lines/Catheters IV Catheter Type (from Nrsg): Saline Lock Urinary Cath still in place: No Assessment/Plan Assessment/Plan - Pruritus - benadryl po q 6hrprn itching - Mechanical low back pain and lower extremity radiculopathy - status post ALIF L3-L4 and L5-S1 by Dr. Norman and the anterior peritoneal exposure by Dr. Atkinson on 06/25/2018 - status post L4-L5 lumbar hardware removal and L3-S1 placement by Dr. Norman on 06/26/2018. - Hypertension. - Chronic pain syndrome. - COPD. Continue postop care. Patient seen in collaboration with Dr Gibbons. dw staff c/o itching- will give benadryl resting; denies any chest pain/shortness of breath VSS effective pain control no events reported overnight dw staff Result Diagram: 06/28/18 0510 06/28/18 0745 Subjective 24 Hr Interval Summary Free Text/Dictation c/o itching- will give benadryl resting; denies any chest pain/shortness of breath VSS effective pain control no events reported overnight dw staff Eyes: no complaints ENT: no complaints Respiratory: no complaints Cardiovascular: no complaints Gastrointestinal: no complaints Genitourinary: no complaints Musculoskeletal: back pain Skin: pruritis Neurologic: no complaints Endocrine: no complaints Lymphatic: no complaints Psychological: nl mood/affect Immunologic: no complaints Exam/Review of Systems Exam Vitals Vital Signs Date Temp Pulse Resp B/P (MAP) Pulse Ox O2 O2 Flow FiO2 Time Delivery Rate 06/30/18 99.4 21:15 06/30/18 18 21:00 06/30/18 80 20:58 06/30/18 2.0 20:31 06/30/18 95 21 20:15 06/30/18 129/79 20:00 (96) 06/30/18 Nasal 07:45 Cannula Intake and Output 06/29/18 06/29/18 06/30/18 1515:00 23:00 07:00 IntakeIntake Total 1000 ml 600 ml 500 ml BalanceBalance 1000 ml 600 ml 500 ml Constitutional: alert, oriented, well developed Psych: nl mood/affect Head: normocephalic Eyes: nl lids, nl sclera ENMT: nl external ears & nose Neck: supple Respiratory: clear to auscultation Cardiovascular: nl pulses, other (S1S2) Gastrointestinal: soft, non-tender Musculoskeletal: joint tenderness, range of motion (c/o back pain) Extremities: normal pulses Neurological: nl speech, other (alertreponsive) Skin: other (lower back incsion; open to air- dry/intact. No s/s of infection noted) Lymph: nontender Medications Medication Current Medications Al Hydrox/Mg Hydrox/Simethicone (Mag-Al Plus) 15 ml Q4H PRN PO .CONSTIPATION; Start 06/25/18 at 19:00 IV Flush (NS 3 ml) 3 ml PER PROTOCOL IV ; Start 06/25/18 at 19:00 Naloxone HCl (Narcan) 0.2 mg Q2M PRN IV RR 8 BREATHS/MIN OR LESS; Start 06/25/18 at 19:00 Lorazepam (Ativan) 0.5 mg Q4 PRN IV AGITATION/ANXIETY Last administered on 06/29/18 16:01; Admin Dose 0.5 MG; Start 06/26/18 at 11:30 Atenolol (Tenormin) 100 mg DAILY PO Last administered on 06/30/18 08:30; Admin Dose 100 MG; Start 06/26/18 at 11:30 Montelukast Sodium (Singulair) 10 mg QHS PO Last administered on 06/30/18 20:17; Admin Dose 10 MG; Start 06/26/18 at 21:00 Quetiapine Fumarate (Seroquel) 400 mg HS PO Last administered on 06/30/18 20:17; Admin Dose 400 MG; Start 06/26/18 at 21:00 Tiotropium [place] (Spiriva) 1 inh DAILY INH Last administered on 06/30/18 08:29; Admin Dose 1 INH; Start 06/26/18 at 11:30 Lamotrigine (Lamictal) 50 mg DAILY PO Last administered on 06/30/18 08:29; Ad min Dose 50 MG; Start 06/26/18 at 11:30 Albuterol/ Ipratropium (Duoneb) 3 ml Q4H RESP THERAPY PRN HHN SHORTNESS OF BREATH Last administered on 06/26/18 13:08; Admin Dose 3 ML; Start 06/26/18 at 12:00 Arformoterol Tartrate (Brovana (Neb)) 2 ml BID RESP THERAPY INH Last administered on 06/30/18 20:13; Admin Dose 2 ML; Start 06/26/18 at 13:00 Budesonide (Pulmicort (Neb)) 0.5 mg Q12H RESP THERAPY INH Last administered on 06/30/18 20:14; Admin Dose 0.5 MG; Start 06/26/18 at 13:00 Clonazepam (Klonopin) 1 mg HS PRN PO INSOMNIA Last administered on 06/30/18 21:26; Admin Dose 1 MG; Start 06/26/18 at 16:30 Acetaminophen (Tylenol Tab) 650 mg Q4H PRN PO MILD PAIN(1-3)OR ELEVATED TEMP Last administered on 06/30/18 20:17; Admin Dose 650 MG; Start 06/27/18 at 20:00 Hydromorphone HCl (Dilaudid [place]) Q4PCA IV Last administered on 06/30/18 15:27; Admin Dose 6 MG; Start 06/29/18 at 06:00 Miscellaneous Information 1 ea NOTE XX ; Start 06/29/18 at 17:30 Diphenhydramine HCl (Benadryl) 25 mg Q6H PRN IV ITCHING Last administered on 06/30/18 18:26; Admin Dose 25 MG; Start 06/30/18 at 18:30 ADRI RIDER June 30, 2018 21:27
[2018-07-01] VITALS (10 sets, daily range): BP systolic 94–134; BP diastolic 56–73; PULSE 70–81; RESP 16–19
[2018-07-01] MEDS: HYDROmorphONE 0.2 MG/ML PCA IV SCH ×3 (00:18→19:04)
--- NOTE | 2018-07-01 08:10 | PN ---
Date/Time of Note Date/Time of Note DATE: 07/01/18 TIME: 08:09 Assessment/Plan VTE Prophylaxis Risk score (from Ns)>0 risk: 5 SCD applied (from [facility] [place]): Yes SCD contraindicated: other Pharmacological prophylaxis: other Pharm contraindication: other Lines/Catheters IV Catheter Type (from Nrsg): Peripheral IV Urinary Cath still in place: No Assessment/Plan Assessment/Plan - Pruritus - benadryl po q 6hrprn itching - Hydrocortisone 1% cean tid- itching - bilateral buttocks - Mechanical low back pain and lower extremity radiculopathy - status post ALIF L3-L4 and L5-S1 by Dr. Norman and the anterior peritoneal exposure by Dr. Atkinson on 06/25/2018 - status post L4-L5 lumbar hardware removal and L3-S1 placement by Dr. Norman on 06/26/2018. - Hypertension. - Chronic pain syndrome. - COPD. Continue postop care. Patient seen in collaboration with Dr Gibbons. dw staff Result Diagram: 07/01/18 0510 07/01/18 0510 Results 24hrs Laboratory Tests Test 07/01/18 02:40 07/01/18 05:10 Urine Color STRAW Urine Clarity CLEAR Urine pH 7.0 Urine Specific [place] 1.003 Urine Ketones NEGATIVE Urine Nitrite NEGATIVE Urine Bilirubin NEGATIVE Urine Urobilinogen NEGATIVE Urine Leukocyte Esterase NEGATIVE Urine Hemoglobin NEGATIVE Urine Glucose NEGATIVE Urine Total Protein NEGATIVE White Blood Count 5.0 # Red Blood Count 3.03 L Hemoglobin 9.8 L Hematocrit 29.5 L Mean Corpuscular Volume 97.4 Mean Corpuscular Hemoglobin 32.3 Mean Corpuscular Hemoglobin Concent 33.2 Red Cell Distribution Width 12.5 Platelet Count 278 # Mean Platelet Volume 10.5 H Immature Granulocytes % 0.600 H Neutrophils % 66.9 Lymphocytes % 19.1 Monocytes % 8.0 Eosinophils % 4.6 Basophils % 0.8 Nucleated Red Blood Cells % 0.0 Immature Granulocytes # 0.030 Neutrophils # 3.4 Lymphocytes # 1.0 Monocytes # 0.4 Eosinophils # 0.2 Basophils # 0.0 Nucleated Red Blood Cells # 0.0 Sodium Level 141 Potassium Level 3.7 Chloride Level 108 Carbon Dioxide Level 27 Anion Gap 6 Blood Urea Nitrogen 7 Creatinine 0.75 Est Glomerular Filtrat Rate mL/min > 60 Glucose Level 111 Calcium Level 9.2 Subjective 24 Hr Interval Summary Free Text/Dictation c/o itching- will give hydrocortisone cream - apply to buttocks resting; denies any chest pain/shortness of breath VSS effective pain control no events reported overnight dw staff Eyes: no complaints ENT: no complaints Respiratory: no complaints Cardiovascular: no complaints Gastrointestinal: no complaints Genitourinary: no complaints Musculoskeletal: bone/joint pain, restricted range of motion Skin: no complaints Neurologic: no complaints Endocrine: no complaints Lymphatic: no complaints Psychological: no complaints Exam/Review of Systems Exam Vitals Vital Signs Date Temp Pulse Resp B/P (MAP) Pulse Ox O2 O2 Flow FiO2 Time Delivery Rate 07/01/18 97.9 77 18 116/72 93 07:59 (87) 07/01/18 2.0 02:00 06/30/18 21 20:15 06/30/18 Nasal 20:00 Cannula Intake and Output 06/30/18 06/30/18 07/01/18 1515:00 23:00 07:00 IntakeIntake Total 650 ml 600 ml OutputOutput Total 350 ml BalanceBalance 300 ml 600 ml Constitutional: alert, oriented, well developed Psych: nl mood/affect Head: normocephalic Eyes: EOMI, nl lids, nl sclera ENMT: nl external ears & nose Neck: non-tender Respiratory: clear to auscultation Cardiovascular: other (s1s2) Gastrointestinal: soft, non-tender Musculoskeletal: nl extremities to inspection, joint tenderness, range of motion (lower back) Extremities: normal pulses Neurological: nl mental status, nl speech Skin: other (lower back inscion- open to air- dry/intact/no s/s of infection noted) Lymph: nontender Results Results 24hrs Laboratory Tests Test 07/01/18 02:40 07/01/18 05:10 Urine Color STRAW Urine Clarity CLEAR Urine pH 7.0 Urine Specific [place] 1.003 Urine Ketones NEGATIVE Urine Nitrite NEGATIVE Urine Bilirubin NEGATIVE Urine Urobilinogen NEGATIVE Urine Leukocyte Esterase NEGATIVE Urine Hemoglobin NEGATIVE Urine Glucose NEGATIVE Urine Total Protein NEGATIVE White Blood Count 5.0 # Red Blood Count 3.03 L Hemoglobin 9.8 L Hematocrit 29.5 L Mean Corpuscular Volume 97.4 Mean Corpuscular Hemoglobin 32.3 Mean Corpuscular Hemoglobin Concent 33.2 Red Cell Distribution Width 12.5 Platelet Count 278 # Mean Platelet Volume 10.5 H Immature Granulocytes % 0.600 H Neutrophils % 66.9 Lymphocytes % 19.1 Monocytes % 8.0 Eosinophils % 4.6 Basophils % 0.8 Nucleated Red Blood Cells % 0.0 Immature Granulocytes # 0.030 Neutrophils # 3.4 Lymphocytes # 1.0 Monocytes # 0.4 Eosinophils # 0.2 Basophils # 0.0 Nucleated Red Blood Cells # 0.0 Sodium Level 141 Potassium Level 3.7 Chloride Level 108 Carbon Dioxide Level 27 Anion Gap 6 Blood Urea Nitrogen 7 Creatinine 0.75 Est Glomerular Filtrat Rate mL/min > 60 Glucose Level 111 Calcium Level 9.2 Medications Medication Current Medications Al Hydrox/Mg Hydrox/Simethicone (Mag-Al Plus) 15 ml Q4H PRN PO .CONSTIPATION; Start 06/25/18 at 19:00 IV Flush (NS 3 ml) 3 ml PER PROTOCOL IV ; Start 06/25/18 at 19:00 Naloxone HCl (Narcan) 0.2 mg Q2M PRN IV RR 8 BREATHS/MIN OR LESS; Start 06/25/18 at 19:00 Lorazepam (Ativan) 0.5 mg Q4 PRN IV AGITATION/ANXIETY Last administered on 06/29/18 16:01; Admin Dose 0.5 MG; Start 06/26/18 at 11:30 Atenolol (Tenormin) 100 mg DAILY PO Last administered on 06/30/18 08:30; Admin Dose 100 MG; Start 06/26/18 at 11:30 Montelukast Sodium (Singulair) 10 mg QHS PO Last administered on 06/30/18 20:17; Admin Dose 10 MG; Start 06/26/18 at 21:00 Quetiapine Fumarate (Seroquel) 400 mg HS PO Last administered on 06/30/18 20:17; Admin Dose 400 MG; Start 06/26/18 at 21:00 Tiotropium [place] (Spiriva) 1 inh DAILY INH Last administered on 06/30/18 08:29; Admin Dose 1 INH; Start 06/26/18 at 11:30 Lamotrigine (Lamictal) 50 mg DAILY PO Last administered on 06/30/18 08:29; Admin Dose 50 MG; Start 06/26/18 at 11:30 Albuterol/ Ipratropium (Duoneb) 3 ml Q4H RESP THERAPY PRN HHN SHORTNESS OF BREATH Last administered on 06/26/18 13:08; Admin Dose 3 ML; Start 06/26/18 at 12:00 Arformoterol Tartrate (Brovana (Neb)) 2 ml BID RESP THERAPY INH Last administered on 06/30/18 20:13; Admin Dose 2 ML; Start 06/26/18 at 13:00 Budesonide (Pulmicort (Neb)) 0.5 mg Q12H RESP THERAPY INH Last administered on 06/30/18 20:14; Admin Dose 0.5 MG; Start 06/26/18 at 13:00 Clonazepam (Klonopin) 1 mg HS PRN PO INSOMNIA Last administered on 06/30/18 21:26; Admin Dose 1 MG; Start 06/26/18 at 16:30 Acetaminophen (Tylenol Tab) 650 mg Q4H PRN PO MILD PAIN(1-3)OR ELEVATED TEMP Last administered on 06/30/18 20:17; Admin Dose 650 MG; Start 06/27/18 at 20:00 Hydromorphone HCl (Dilaudid [place]) Q4PCA IV Last administered on 07/01/18 00:18; Admin Dose 6 MG; Start 06/29/18 at 06:00 Miscellaneous Information 1 ea NOTE XX ; Start 06/29/18 at 17:30 Diphenhydramine HCl (Benadryl) 25 mg Q6H PRN IV ITCHING Last administered on 06/30/18 18:26; Admin Dose 25 MG; Start 06/30/18 at 18:30 Hydrocortisone (Hydrocortisone 1% Cr) 1 applic TID PRN TOP itching; Start 07/01/18 at 09:00 ADRI RIDER July 01, 2018 08:10
[2018-07-01] MEDS: TIOTROPIUM 18 MCG CAPSULE INHA DEV INH SCH (08:57)
[2018-07-01] MEDS: HYDROCORTISONE 1% 28 GM CR TOP PRN (08:57)
[2018-07-01] MEDS: LAMOTRIGINE 25 MG TAB PO SCH (08:57)
[2018-07-01] MEDS: ATENOLOL 100 MG TAB PO SCH (08:58)
[2018-07-01] MEDS: ARFORMOTEROL TARTRATE 15MCG/2 ML AMP INH SCH ×2 (09:40→19:58)
[2018-07-01] MEDS: BUDESONIDE (NEB) 0.5MG/2ML AMP INH SCH ×2 (09:40→19:53)
[2018-07-01] MEDS: DIPHENHYDRAMINE 50 MG INJ IV PRN ×2 (10:21→16:49)
[2018-07-01] MEDS: ACETAMINOPHEN 325 MG TAB PO PRN (20:08)
[2018-07-01] MEDS: clonAZEPAM 0.5 MG TAB PO PRN (21:48)
[2018-07-01] MEDS: MONTELUKAST 10 MG TAB PO SCH (21:48)
[2018-07-01] MEDS: QUETIAPINE 100 MG TAB PO SCH (21:49)
[2018-07-02 03:14] VITALS: BP 95/61; PULSE 76; RESP 18
[2018-07-02] MEDS: HYDROmorphONE 0.2 MG/ML PCA IV SCH ×3 (06:45→21:54)
[2018-07-02] MEDS: ARFORMOTEROL TARTRATE 15MCG/2 ML AMP INH SCH ×2 (08:21→20:09)
[2018-07-02] MEDS: BUDESONIDE (NEB) 0.5MG/2ML AMP INH SCH ×2 (08:21→20:09)
[2018-07-02 08:28] VITALS: BP 100/55; RESP 18
[2018-07-02] MEDS: ATENOLOL 100 MG TAB PO SCH (09:00)
[2018-07-02] MEDS: TIOTROPIUM 18 MCG CAPSULE INHA DEV INH SCH (09:49)
[2018-07-02] MEDS: LAMOTRIGINE 25 MG TAB PO SCH (09:49)
[2018-07-02] MEDS: DIPHENHYDRAMINE 50 MG INJ IV PRN ×3 (11:31→23:41)
[2018-07-02 13:02] VITALS: BP 108/64; PULSE 74; RESP 18
[2018-07-02] MEDS: HYDROCORTISONE 1% 28 GM CR TOP PRN (15:59)
--- NOTE | 2018-07-02 17:29 | PN ---
Date/Time of Note Date/Time of Note DATE: 07/02/18 TIME: 17:28 Assessment/Plan VTE Prophylaxis Risk score (from Ns)>0 risk: 3 SCD applied (from Ns): Yes Pharmacological prophylaxis: NA/contraindicated Pharm contraindication: surgical contra Lines/Catheters IV Catheter Type (from Nrsg): Peripheral IV Urinary Cath still in place: No Assessment/Plan Hospital Course Patient is currently on REGISTERED NURSE STEP DOWN Dilaudid still complains of significant pain in her right foot numbness. Assessment/Plan -Mechanical LBP and LE radiculopathy. S/p ALIF L3,[address] Norman with anterior peritoneal exposure by Dr. Atkinson on 06/25/18. S/p L4-5 Lumbar [place] re Removal and L3-S1 ISF placement by Reyes Norman on 06/26/18. Continue REGISTERED NURSE STEP DOWN Dilaudid as needed for pain and Zofran as needed for nausea. Continue IV fluids and postoperative antibiotic. Physical therapy. -Chronic lower back pain. Dr. Lux is following in pain management consultation. -Hypertension, continue atenolol. -COPD, continue budesonide -Severe insomnia Further recommendations based on clinical course. Plan of care discussed with Dr. Gibbons. Result Diagram: 07/02/18 0514 07/02/18 0513 Results 24hrs Laboratory Tests Test 07/02/18 05:13 07/02/18 05:14 Sodium Level 142 Potassium Level 4.3 Chloride Level 107 Carbon Dioxide Level 29 Anion Gap 6 Blood Urea Nitrogen 10 Creatinine 0.95 Est Glomerular Filtrat Rate mL/min > 60 Glucose Level 96 Calcium Level 9.3 White Blood Count 6.3 # Red Blood Count 3.04 L Hemoglobin 9.9 L Hematocrit 29.9 L Mean Corpuscular Volume 98.4 Mean Corpuscular Hemoglobin 32.6 Mean Corpuscular Hemoglobin Concent 33.1 Red Cell Distribution Width 12.2 Platelet Count 312 Mean Platelet Volume 10.0 Immature Granulocytes % 1.000 H Neutrophils % 66.4 Lymphocytes % 17.7 Monocytes % 10.8 Eosinophils % 3.5 Basophils % 0.6 Nucleated Red Blood Cells % 0.0 Immature Granulocytes # 0.060 H Neutrophils # 4.2 Lymphocytes # 1.1 Monocytes # 0.7 Eosinophils # 0.2 Basophils # 0.0 Nucleated Red Blood Cells # 0.0 Exam/Review of Systems Exam Vitals Vital Signs Date Temp Pulse Resp B/P (MAP) Pulse Ox O2 O2 Flow FiO2 Time Delivery Rate 07/02/18 16 16:00 07/02/18 99.1 74 108/64 99 Room Air 13:02 (79) 07/02/18 2.0 08:30 07/01/18 21 19:53 Intake and Output 07/01/18 07/01/18 07/02/18 1515:00 23:00 07:00 IntakeIntake Total 200 ml 300 ml BalanceBalance 200 ml 300 ml Exam Constitutional: alert, oriented Respiratory: clear to auscultation Cardiovascular: nl pulse Gastrointestinal: soft, other (Status post surgery) Musculoskeletal: other (Status post surgery) Extremities: normal pulses Neurological: nl mental status Skin: nl turgor Results Results 24hrs Laboratory Tests Test 07/02/18 05:13 07/02/18 05:14 Sodium Level 142 Potassium Level 4.3 Chloride Level 107 Carbon Dioxide Level 29 Anion Gap 6 Blood Urea Nitrogen 10 Creatinine 0.95 Est Glomerular Filtrat Rate mL/min > 60 Glucose Level 96 Calcium Level 9.3 White Blood Count 6.3 # Red Blood Count 3.04 L Hemoglobin 9.9 L Hematocrit 29.9 L Mean Corpuscular Volume 98.4 Mean Corpuscular Hemoglobin 32.6 Mean Corpuscular Hemoglobin Concent 33.1 Red Cell Distribution Width 12.2 Platelet Count 312 Mean Platelet Volume 10.0 Immature Granulocytes % 1.000 H Neutrophils % 66.4 Lymphocytes % 17.7 Monocytes % 10.8 Eosinophils % 3.5 Basophils % 0.6 Nucleated Red Blood Cells % 0.0 Immature Granulocytes # 0.060 H Neutrophils # 4.2 Lymphocytes # 1.1 Monocytes # 0.7 Eosinophils # 0.2 Basophils # 0.0 Nucleated Red Blood Cells # 0.0 Medications Medication Current Medications Al Hydrox/Mg Hydrox/Simethicone (Mag-Al Plus) 15 ml Q4H PRN PO .CONSTIPATION; Start 06/25/18 at 19:00 IV Flush (NS 3 ml) 3 ml PER PROTOCOL IV ; Start 06/25/18 at 19:00 Naloxone HCl (Narcan) 0.2 mg Q2M PRN IV RR 8 BREATHS/MIN OR LESS; Start at 19:00 Lorazepam (Ativan) 0.5 mg Q4 PRN IV AGITATION/ANXIETY Last administered on 06/29/18 16:01; Admin Dose 0.5 MG; Start 06/26/18 at 11:30 Atenolol (Tenormin) 100 mg DAILY PO Last administered on 07/01/18 08:58; Admin Dose 100 MG; Start 06/26/18 at 11:30 Montelukast Sodium (Singulair) 10 mg QHS PO Last administered on 07/01/18 21:48; Admin Dose 10 MG; Start 06/26/18 at 21:00 Quetiapine Fumarate (Seroquel) 400 mg HS PO Last administered on 07/01/18 21:49; Admin Dose 400 MG; Start 06/26/18 at 21:00 Tiotropium [place] (Spiriva) 1 inh DAILY INH Last administered on 07/02/18 09: 49; Admin Dose 1 INH; Start 06/26/18 at 11:30 Lamotrigine (Lamictal) 50 mg DAILY PO Last administered on 07/02/18 09:49; Admin Dose 50 MG; Start 06/26/18 at 11:30 Albuterol/ Ipratropium (Duoneb) 3 ml Q4H RESP THERAPY PRN HHN SHORTNESS OF BREATH Last administered on 06/26/18 13:08; Admin Dose 3 ML; Start 06/26/18 at 12:00 Arformoterol Tartrate (Brovana (Neb)) 2 ml BID RESP THERAPY INH Last ad ministered on 07/02/18 08:21; Admin Dose 2 ML; Start 06/26/18 at 13:00 Budesonide (Pulmicort (Neb)) 0.5 mg Q12H RESP THERAPY INH Last administered on 07/02/18 08:21; Admin Dose 0.5 MG; Start 06/26/18 at 13:00 Clonazepam (Klonopin) 1 mg HS PRN PO INSOMNIA Last administered on 07/01/18 21:48; Admin Dose 1 MG; Start 06/26/18 at 16:30 Acetaminophen (Tylenol Tab) 650 mg Q4H PRN PO MILD PAIN(1-3)OR ELEVATED TEMP Last administered on 07/01/18 20:08; Admin Dose 650 MG; Start 06/27/18 at 20:00 Miscellaneous Information 1 ea NOTE XX ; Start 06/29/18 at 17:30 Diphenhydramine HCl (Benadryl) 25 mg Q6H PRN IV ITCHING Last administered on 07/02/18at 17:03; Admin Dose 25 MG; Start 06/30/18 at 18:30 Hydrocortisone (Hydrocortisone 1% Cr) 1 applic TID PRN TOP itching Last administered on 07/02/18 15:59; Admin Dose 1 APPLIC; Start 07/01/18 at 09:00 Hydromorphone HCl (Dilaudid REGISTERED NURSE STEP DOWN) Q4PCA IV Last administered on 07/02/18at 15:52; Admin Dose 6 MG; Start 07/02/18 at 16:00 JORDI ROBLES July 02, 2018 17:29
[2018-07-02 20:25] VITALS: BP 114/78; PULSE 78; RESP 16
[2018-07-02] MEDS: clonAZEPAM 0.5 MG TAB PO PRN (21:54)
[2018-07-02] MEDS: MONTELUKAST 10 MG TAB PO SCH (21:54)
[2018-07-02] MEDS: QUETIAPINE 100 MG TAB PO SCH (21:54)
[2018-07-03 02:59] VITALS: BP 117/79; PULSE 76; RESP 17
[2018-07-03] MEDS: HYDROmorphONE 0.2 MG/ML PCA IV SCH ×3 (06:21→18:07)
[2018-07-03 08:08] VITALS: BP 106/71; PULSE 75; RESP 18
[2018-07-03] MEDS: BUDESONIDE (NEB) 0.5MG/2ML AMP INH SCH ×2 (08:48→21:40)
[2018-07-03] MEDS: ARFORMOTEROL TARTRATE 15MCG/2 ML AMP INH SCH ×2 (08:52→21:40)
[2018-07-03] MEDS: LAMOTRIGINE 25 MG TAB PO SCH (09:48)
[2018-07-03] MEDS: ATENOLOL 100 MG TAB PO SCH (09:48)
[2018-07-03] MEDS: TIOTROPIUM 18 MCG CAPSULE INHA DEV INH SCH (11:43)
[2018-07-03] MEDS: DIPHENHYDRAMINE 50 MG INJ IV PRN ×2 (12:26→21:53)
[2018-07-03 14:00] VITALS: BP 118/78; PULSE 78; RESP 18
--- NOTE | 2018-07-03 15:28 | PN ---
Date/Time of Note Date/Time of Note DATE: 07/03/18 TIME: 15:26 Assessment/Plan VTE Prophylaxis Risk score (from Ns)>0 risk: 3 SCD applied (from Ns): Yes Pharmacological prophylaxis: NA/contraindicated Pharm contraindication: surgical contra Lines/Catheters IV Catheter Type (from Nrsg): Peripheral IV Urinary Cath still in place: No Assessment/Plan Hospital Course No acute events overnight, patient continues on CLINICAL DATA MANAGEMENT MANAGER Dilaudid with titration for pain management, continue PT. Assessment/Plan -Mechanical LBP and LE radiculopathy. S/p ALIF L3,[address] Norman with anterior peritoneal exposure by Dr. Atkinson on 06/25/18. S/p L4-5 Lumbar Hardware Removal and L3-S1 ISF placement by Reyes Norman on 06/26/18. Continue CLINICAL DATA MANAGEMENT MANAGER Dilaudid as needed for pain and Zofran as needed for nausea. Continue IV fluids and postoperative antibiotic. Physical therapy. -Chronic lower back pain. Dr. Lux is following in pain management consultation. -Hypertension, continue atenolol. -COPD, continue budesonide -Severe insomnia Further recommendations based on clinical course. Plan of care discussed with Dr. Gibbons. Result Diagram: 07/02/1851307/02/18 05 Exam/Review of Systems Exam Vitals Vital Signs Date Temp Pulse Resp B/P (MAP) Pulse Ox O2 O2 Flow FiO2 Time Delivery Rate 07/03/18 17 13:00 07/03/18 84 94 21 08:53 07/03/18 98.2 106/71 Nasal 2.0 08:08 (83) Cannula Intake and Output 07/02/18 07/02/18 07/03/18 1515:00 23:00 07:00 IntakeIntake Total 400 ml BalanceBalance 400 ml Exam Constitutional: alert, oriented Respiratory: clear to auscultation Cardiovascular: nl pulse Gastrointestinal: soft, other (Status post surgery) Musculoskeletal: other (Status post surgery) Extremities: normal pulses Neurological: nl mental status Skin: nl turgor Medications Medication Current Medications Al Hydrox/Mg Hydrox/Simethicone (Mag-Al Plus) 15 ml Q4H PRN PO .CONSTIPATION; Start 06/25/18 at 19:00 IV Flush (NS 3 ml) 3 ml PER PROTOCOL IV ; Start 06/25/18 at 19:00 Naloxone HCl (Narcan) 0.2 mg Q2M PRN IV RR 8 BREATHS/MIN OR LESS; Start 06/25/18 at 19:00 Lorazepam (Ativan) 0.5 mg Q4 PRN IV AGITATION/ANXIETY Last administered on 06/29/18 16:01; Admin Dose 0.5 MG; Start 06/26/18 at 11:30 Atenolol (Tenormin) 100 mg DAILY PO Last administered on 07/03/18 09:48; Admin Dose 100 MG; Start 06/26/18 at 11:30 Montelukast Sodium (Singulair) 10 mg QHS PO Last administered on 07/02/18 2 1:54; Admin Dose 10 MG; Start 06/26/18 at 21:00 Quetiapine Fumarate (Seroquel) 400 mg HS PO Last administered on 07/02/18 21:54; Admin Dose 400 MG; Start 06/26/18 at 21:00 Tiotropium [place] (Spiriva) 1 inh DAILY INH Last administered on 07/03/18 11:43; Admin Dose 1 INH; Start 06/26/18 at 11:30 Lamotrigine (Lamictal) 50 mg DAILY PO Last administered on 07/03/18 09:48; Admin Dose 50 MG; Start 06/26/18 at 11:30 Albuterol/ Ipratropium (Duoneb) 3 ml Q4H RESP THERAPY PRN HHN SHORTNESS OF BREATH Last administered on 06/26/18 13:08; Admin Dose 3 ML; Start 06/26/18 at 12:00 Arformoterol Tartrate (Brovana (Neb)) 2 ml BID RESP THERAPY INH Last administered on 07/03/18 08:52; Admin Dose 2 ML; Start 06/26/18 at 13:00 Budesonide (Pulmicort (Neb)) 0.5 mg Q12H RESP THERAPY INH Last administered on 07/03/18 08:48; Admin Dose 0.5 MG; Start 06/26/18 at 13:00 Clonazepam (Klonopin) 1 mg HS PRN PO INSOMNIA Last administered on 07/02/18 21:54; Admin Dose 1 MG; Start 06/26/18 at 16:30 Acetaminophen (Tylenol Tab) 650 mg Q4H PRN PO MILD PAIN(1-3)OR ELEVATED TEMP Last administered on 07/01/18 20:08; Admin Dose 650 MG; Start 06/27/18 at 20:00 Miscellaneous Information 1 ea NOTE XX ; Start 06/29/18 at 17:30 Diphenhydramine HCl (Benadryl) 25 mg Q6H PRN IV ITCHING Last administered on 07/03/18 12:26; Admin Dose 25 MG; Start 06/30/18 at 18:30 Hydrocortisone (Hydrocortisone 1% Cr) 1 applic TID PRN TOP itching Last administered on 07/02/18 15:59; Admin Dose 1 APPLIC; Start 07/01/18 at 09:00 Hydromorphone HCl (Dilaudid CLINICAL DATA MANAGEMENT MANAGER) Q4PCA IV Last administered on 07/03/18 12:22; Admin Dose 6 MG; Start 07/02/18 at 16:00 JORDI ROBLES July 03, 2018 15:28
[2018-07-03 19:49] VITALS: BP 116/68; PULSE 72; RESP 18
[2018-07-03] MEDS: QUETIAPINE 100 MG TAB PO SCH (21:52)
[2018-07-03] MEDS: MONTELUKAST 10 MG TAB PO SCH (21:52)
[2018-07-03] MEDS: clonAZEPAM 0.5 MG TAB PO PRN (21:54)
[2018-07-04 00:08] VITALS: BP 101/55; PULSE 78; RESP 16
[2018-07-04] MEDS: HYDROmorphONE 0.2 MG/ML PCA IV SCH ×4 (01:28→21:15)
[2018-07-04 03:34] VITALS: BP 100/55; PULSE 73; RESP 14
[2018-07-04 08:23] VITALS: BP 100/62; PULSE 74; RESP 16
[2018-07-04] MEDS: BUDESONIDE (NEB) 0.5MG/2ML AMP INH SCH ×2 (08:28→21:18)
[2018-07-04] MEDS: ARFORMOTEROL TARTRATE 15MCG/2 ML AMP INH SCH ×2 (08:28→21:18)
[2018-07-04] MEDS: ATENOLOL 100 MG TAB PO SCH (08:40)
[2018-07-04] MEDS: TIOTROPIUM 18 MCG CAPSULE INHA DEV INH SCH (08:40)
[2018-07-04] MEDS: LAMOTRIGINE 25 MG TAB PO SCH (08:40)
--- NOTE | 2018-07-04 12:17 | PN ---
Date/Time of Note Date/Time of Note DATE: 07/04/18 TIME: 12:16 Assessment/Plan VTE Prophylaxis Risk score (from Ns)>0 risk: 3 SCD applied (from Ns): Yes Pharmacological prophylaxis: NA/contraindicated Pharm contraindication: surgical contra Lines/Catheters IV Catheter Type (from Nrsg): Peripheral IV Urinary Cath still in place: No Assessment/Plan Hospital Course Patient is able to work with physical therapy, continues on Dilaudid MANPOWER DEVELOPMENT MANAGER, which being down titrated gradually by pain management. Assessment/Plan -Mechanical LBP and LE radiculopathy. S/p ALIF L3,[address] Norman with anterior peritoneal exposure by Dr. Atkinson on 06/25/18. S/p L4-5 Lumbar Hardware Removal and L3-S1 ISF placement by Reyes Norman on 06/26/18. Continue MANPOWER DEVELOPMENT MANAGER Dilaudid as needed for pain and Zofran as needed for nausea. Continue IV fluids and postoperative antibiotic. Physical therapy. -Chronic lower back pain. Dr. Lux is following in pain management consultation. -Hypertension, continue atenolol. -COPD, continue budesonide -Severe insomnia Further recommendations based on clinical course. Plan of care discussed with Dr. Gibbons. Result Diagram: 07/02/1851307/02/18512 Exam/Review of Systems Exam Vitals Vital Signs Date Temp Pulse Resp B/P (MAP) Pulse Ox O2 O2 Flow FiO2 Time Delivery Rate 07/04/18 17 09:35 07/04/18 3.0 08:28 07/04/18 73 94 Nasal 08:28 Cannula 07/04/18 98.0 100/62 08:23 (75) 07/03/18 27 21:43 Intake and Output 07/03/18 07/03/18 07/04/18 1515:00 23:00 07:00 IntakeIntake Total 400 ml 120 ml OutputOutput Total 500 ml 700 ml BalanceBalance -100 ml -580 ml Exam Constitutional: alert, oriented Respiratory: clear to auscultation Cardiovascular: nl pulse Gastrointestinal: soft, other (Status post surgery) Musculoskeletal: other (Status post surgery) Extremities: normal pulses Neurological: nl mental status Skin: nl turgor Medications Medication Current Medications Al Hydrox/Mg Hydrox/Simethicone (Mag-Al Plus) 15 ml Q4H PRN PO .CONSTIPATION Last administered on 07/04/18 12:02; Admin Dose 15 ML; Start 06/25/18 at 19:00 IV Flush (NS 3 ml) 3 ml PER PROTOCOL IV ; Start 06/25/18 at 19:00 Naloxone HCl (Narcan) 0.2 mg Q2M PRN IV RR 8 BREATHS/MIN OR LESS; Start 06/25/18 at 19:00 Lorazepam (Ativan) 0.5 mg Q4 PRN IV AGITATION/ANXIETY Last administered on 06/29/18 16:01; Admin Dose 0.5 MG; Start 06/26/18 at 11:30 Atenolol (Tenormin) 100 mg DAILY PO Last administered on 07/04/18 08:40; Admin Dose 100 MG; Start 06/26/18 at 11:30 Montelukast Sodium (Singulair) 10 mg QHS PO Last administered on 07/03/18 21:52; Admin Dose 10 MG; Start 06/26/18 at 21:00 Quetiapine Fumarate (Seroquel) 400 mg HS PO Last administered on 07/03/18 21:52; Admin Dose 400 MG; Start 06/26/18 at 21:00 Tiotropium [place] (Spiriva) 1 inh DAILY INH Last administered on 07/04/18 08:40; Admin Dose 1 INH; Start 06/26/18 at 11:30 Lamotrigine (Lamictal) 50 mg DAILY PO Last administered on 07/04/18 08:40; Admin Dose 50 MG; Start 06/26/18 at 11:30 Albuterol/ Ipratropium (Duoneb) 3 ml Q4H RESP THERAPY PRN HHN SHORTNESS OF BREATH Last administered on 06/26/18 13:08; Admin Dose 3 ML; Start 06/26/18 at 12:00 Arformoterol Tartrate (Brovana (Neb)) 2 ml BID RESP THERAPY INH Last administered on 07/03/18 21:40; Admin Dose 2 ML; Start 06/26/18 at 13:00 Budesonide (Pulmicort (Neb)) 0.5 mg Q12H RESP THERAPY INH Last administered on 07/04/18 08:28; Admin Dose 0.5 MG; Start 06/26/18 at 13:00 Clonazepam (Klonopin) 1 mg HS PRN PO INSOMNIA Last administered on 07/03/18 21:54; Admin Dose 1 MG; Start 06/26/18 at 16:30 Acetaminophen (Tylenol Tab) 650 mg Q4H PRN PO MILD PAIN(1-3)OR ELEVATED TEMP Last administered on 07/01/18 20:08; Admin Dose 650 MG; Start 06/27/18 at 20:00 Miscellaneous Information 1 ea NOTE XX ; Start 06/29/18 at 17:30 Diphenhydramine HCl (Benadryl) 25 mg Q6H PRN IV ITCHING Last administered on 07/03/18 21:53; Admin Dose 25 MG; Start 06/30/18 at 18:30 Hydrocortisone (Hydrocortisone 1% Cr) 1 applic TID PRN TOP itching Last admin istered on 07/02/18 15:59; Admin Dose 1 APPLIC; Start 07/01/18 at 09:00 Hydromorphone HCl (Dilaudid MANPOWER DEVELOPMENT MANAGER) Q4PCA IV Last administered on 07/04/18 09:31; Admin Dose 6 MG; Start 07/02/18 at 16:00 JORDI ROBLES July 04, 2018 12:17
[2018-07-04 16:11] VITALS: BP 117/63; PULSE 74; RESP 20
[2018-07-04] MEDS: DIPHENHYDRAMINE 50 MG INJ IV PRN ×2 (16:17→22:12)
[2018-07-04 19:40] VITALS: BP 108/61; PULSE 77; RESP 20
[2018-07-04] MEDS: clonAZEPAM 0.5 MG TAB PO PRN (22:09)
[2018-07-04] MEDS: MONTELUKAST 10 MG TAB PO SCH (22:10)
[2018-07-04] MEDS: QUETIAPINE 100 MG TAB PO SCH (22:10)
[2018-07-05 02:45] VITALS: BP 94/51; PULSE 70; RESP 20
[2018-07-05] MEDS: HYDROmorphONE 0.2 MG/ML PCA IV SCH ×3 (06:00→19:37)
[2018-07-05 07:40] VITALS: BP 94/50; PULSE 73; RESP 19
[2018-07-05] MEDS: TIOTROPIUM 18 MCG CAPSULE INHA DEV INH SCH (09:17)
[2018-07-05] MEDS: LAMOTRIGINE 25 MG TAB PO SCH (09:17)
[2018-07-05] MEDS: ACETAMINOPHEN 325 MG TAB PO PRN (09:19)
[2018-07-05 09:26] VITALS: BP 99/59; PULSE 78
[2018-07-05] MEDS: BUDESONIDE (NEB) 0.5MG/2ML AMP INH SCH ×2 (09:46→19:43)
[2018-07-05] MEDS: ARFORMOTEROL TARTRATE 15MCG/2 ML AMP INH SCH ×2 (09:46→19:43)
--- NOTE | 2018-07-05 09:57 | PN ---
Date/Time of Note Date/Time of Note DATE: 07/05/18 TIME: 09:47 Assessment/Plan VTE Prophylaxis Risk score (from Ns)>0 risk: 5 SCD applied (from Ns): Yes SCD contraindicated: low risk/ambulating Pharmacological prophylaxis: NA/contraindicated Pharm contraindication: low risk/ambulating Lines/Catheters IV Catheter Type (from Nrsg): Peripheral IV Central line still needed: No Urinary Cath still in place: No Assessment/Plan Assessment/Plan impression s/p ALIF with posterior fixation doing well overall with noted new left SI joint paint surgical site:CDI plan CT Lspine for follow up pain management rehab okay from NS point of view pt/ot with LSO brace Result Diagram: 07/02/1851307/02/18512 Subjective 24 Hr Interval Summary Free Text/Dictation Neurosurgery Progress Note S: c/o mild right SI joint pain Exam/Review of Systems Exam Vitals Vital Signs Date Temp Pulse Resp B/P (MAP) Pulse Ox O2 O2 Flow FiO2 Time Delivery Rate 07/05/18 78 99/59 (72) 09:26 07/05/18 99.9 09:19 07/05/18 19 95 Room Air 07:40 07/04/18 21 21:18 07/04/18 3.0 08:28 Intake and Output 07/04/18 07/04/18 07/05/18 1414:59 22:59 06:59 IntakeIntake Total 400 ml 120 ml OutputOutput Total 2 ml BalanceBalance 400 ml 118 ml Neurological: other (MS: AAOX4 CN: PERRL M: FC x 4, no focal weakness) Medications Medication Current Medications Al Hydrox/Mg Hydrox/Simethicone (Mag-Al Plus) 15 ml Q4H PRN PO .CONSTIPATION Last administered on 07/04/18at 12:02; Admin Dose 15 ML; Start 06/25/18 at 19:00 IV Flush (NS 3 ml) 3 ml PER PROTOCOL IV ; Start 06/25/18 at 19:00 Naloxone HCl (Narcan) 0.2 mg Q2M PRN IV RR 8 BREATHS/MIN OR LESS; Start 06/25/18 at 19:00 Lorazepam (Ativan) 0.5 mg Q4 PRN IV AGITATION/ANXIETY Last administered on 06/29/18at 16:01; Admin Dose 0.5 MG; Start 06/26/18 at 11:30 Atenolol (Tenormin) 100 mg DAILY PO Last administered on 07/04/18 08:40; Admin Dose 100 MG; Start 06/26/18 at 11:30 Montelukast Sodium (Singulair) 10 mg QHS PO Last administered on 07/04/18 22:10; Admin Dose 10 MG; Start 06/26/18 at 21:00 Quetiapine Fumarate (Seroquel) 400 mg HS PO Last administered on 07/04/18 22:10; Admin Dose 400 MG; Start 06/26/18 at 21:00 Tiotropium [place] (Spiriva) 1 inh DAILY INH Last administered on 07/05/18 09:17; Admin Dose 1 INH; Start 06/26/18 at 11:30 Lamotrigine (Lamictal) 50 mg DAILY PO Last administered on 07/05/18 09:17; Admin Dose 50 MG; Start 06/26/18 at 11:30 Albuterol/ Ipratropium (Duoneb) 3 ml Q4H RESP THERAPY PRN HHN SHORTNESS OF BREATH Last administered on 06/26/18 13:08; Admin Dose 3 ML; Start 06/26/18 at 12:00 Arformoterol Tartrate (Brovana (Neb)) 2 ml BID RESP THERAPY INH Last administered on 07/04/18 21:18; Admin Dose 2 ML; Start 06/26/18 at 13:00 Budesonide (Pulmicort (Neb)) 0.5 mg Q12H RESP THERAPY INH Last administered on 07/04/18 21:18; Admin Dose 0.5 MG; Start 06/26/18 at 13:00 Clonazepam (Klonopin) 1 mg HS PRN PO INSOMNIA Last administered on 07/04/18 22:09; Admin Dose 1 MG; Start 06/26/18 at 16:30 Acetaminophen (Tylenol Tab) 650 mg Q4H PRN PO MILD PAIN(1-3)OR ELEVATED TEMP Last administered on 07/05/18 09:19; Admin Dose 650 MG; Start 06/27/18 at 20:00 Miscellaneous Information 1 ea NOTE XX ; Start 06/29/18 at 17:30 Diphenhydramine HCl (Benadryl) 25 mg Q6H PRN IV ITCHING Last administered on 07/04/18at 22:12; Admin Dose 25 MG; Start 06/30/18 at 18:30 Hydrocortisone (Hydrocortisone 1% Cr) 1 applic TID PRN TOP itching Last administered on 07/02/18at 15:59; Admin Dose 1 APPLIC; Start 07/01/18 at 09:00 Hydromorphone HCl (Dilaudid RV REPAIRER) Q4PCA IV Last administered on 07/05/18at 06:0 0; Admin Dose 6 MG; Start 07/02/18 at 16:00 SAMARIA ALFORD NP July 05, 2018 09:57
[2018-07-05] MEDS: ATENOLOL 100 MG TAB PO SCH (10:00)
[2018-07-05] MEDS: DIPHENHYDRAMINE 50 MG INJ IV PRN ×2 (14:34→21:59)
[2018-07-05 15:34] VITALS: BP 99/54; PULSE 72; RESP 18
--- NOTE | 2018-07-05 16:52 | PN ---
Date/Time of Note Date/Time of Note DATE: 07/05/18 TIME: 16:47 Assessment/Plan VTE Prophylaxis Risk score (from Nsg)>0 risk: 5 SCD applied (from Nsg): Yes Pharmacological prophylaxis: NA/contraindicated Pharm contraindication: surgical contra Lines/Catheters IV Catheter Type (from Nrsg): Peripheral IV Urinary Cath still in place: No Assessment/Plan Hospital Course Patient continues on FILLING STATION EQUIPMENT MECHANIC of Dilaudid for pain management with slow down titration, Dr. Lux is following in pain management consultation. Status post evaluation for AR you patient is to functional plan for discharge home with home health PT services when pain is adequately controlled. Assessment/Plan -Mechanical LBP and LE radiculopathy. S/p ALIF L3,[address] Norman with anterior peritoneal exposure by Dr. Atkinson on 06/25/18. S/p L4-5 Lumbar Hardware Removal and L3-S1 ISF placement by Reyes Norman on 06/26/18. Continue FILLING STATION EQUIPMENT MECHANIC Dilaudid as needed for pain and Zofran as needed for nausea. Continue IV fluids and postoperative antibiotic. Physical therapy. -Chronic lower back pain. Dr. Lux is following in pain management consultation. -Hypertension, continue atenolol. -COPD, continue budesonide -Severe insomnia Disposition: home with home health PT services Further recommendations based on clinical course. Plan of care discussed with Dr. Gibbons. Result Diagram: 07/02/1851307/02/18 05 Exam/Review of Systems Exam Vitals Vital Signs Date Temp Pulse Resp B/P (MAP) Pulse Ox O2 O2 Flow FiO2 Time Delivery Rate 07/05/18 99.2 72 18 99/54 (69) 95 Room Air 15:34 07/05/18 21 09:47 07/04/18 3.0 08:28 Intake and Output 07/04/18 07/04/18 07/05/18 1515:00 23:00 07:00 IntakeIntake Total 400 ml 120 ml OutputOutput Total 2 ml BalanceBalance 400 ml 118 ml Exam Constitutional: alert, oriented Respiratory: clear to auscultation Cardiovascular: nl pulse Gastrointestinal: soft, other (Status post surgery) Musculoskeletal: other (Status post surgery) Extremities: normal pulses Neurological: nl mental status Skin: nl turgor Medications Medication Current Medications Al Hydrox/Mg Hydrox/Simethicone (Mag-Al Plus) 15 ml Q4H PRN PO .CONSTIPATION Last administered on 07/04/18 12:02; Admin Dose 15 ML; Start 06/25/18 at 19:00 IV Flush (NS 3 ml) 3 ml PER PROTOCOL IV ; Start 06/25/18 at 19:00 Naloxone HCl (Narcan) 0.2 mg Q2M PRN IV RR 8 BREATHS/MIN OR LESS; Start 06/25/18 at 19:00 Lorazepam (Ativan) 0.5 mg Q4 PRN IV AGITATION/ANXIETY Last administered on 06/29/18 16:01; Admin Dose 0.5 MG; Start 06/26/18 at 11:30 Atenolol (Tenormin) 100 mg DAILY PO Last administered on 07/04/18 08:40; Admin Dose 100 MG; Start 06/26/18 at 11:30 Montelukast Sodium (Singulair) 10 mg QHS PO Last administered on 07/04/18 22:10; Admin Dose 10 MG; Start 06/26/18 at 21:00 Quetiapine Fumarate (Seroquel) 400 mg HS PO Last administered on 07/04/18 22:10; Admin Dose 400 MG; Start 06/26/18 at 21:00 Tiotropium [place] (Spiriva) 1 inh DAILY INH Last administered on 07/05/18 09:17; Admin Dose 1 INH; Start 06/26/18 at 11:30 Lamotrigine (Lamictal) 50 mg DAILY PO Last administered on 07/05/18 09:17; Admin Dose 50 MG; Start 06/26/18 at 11:30 Albuterol/ Ipratropium (Duoneb) 3 ml Q4H RESP THERAPY PRN HHN SHORTNESS OF BREATH Last administered on 06/26/18 13:08; Admin Dose 3 ML; Start 06/26/18 at 12:00 Arformoterol Tartrate (Brovana (Neb)) 2 ml BID RESP THERAPY INH Last administered on 07/05/18 09:46; Admin Dose 2 ML; Start 06/26/18 at 13:00 Budesonide (Pulmicort (Neb)) 0.5 mg Q12H RESP THERAPY INH Last administered on 07/05/18 09:46; Admin Dose 0.5 MG; Start 06/26/18 at 13:00 Clonazepam (Klonopin) 1 mg HS PRN PO INSOMNIA Last administered on 07/04/18 22:09; Admin Dose 1 MG; Start 06/26/18 at 16:30 Acetaminophen (Tylenol Tab) 650 mg Q4H PRN PO MILD PAIN(1-3)OR ELEVATED TEMP Last administered on 07/05/18 09:19; Admin Dose 650 MG; Start 06/27/18 at 20:00 Miscellaneous Information 1 ea NOTE XX ; Start 06/29/18 at 17:30 Diphenhydramine HCl (Benadryl) 25 mg Q6H PRN IV ITCHING Last administered on 07/05/18 14:34; Admin Dose 25 MG; Start 06/30/18 at 18:30 Hydrocortisone (Hydrocortisone 1% Cr) 1 applic TID PRN TOP itching Last administered on 07/02/18at 15:59; Admin Dose 1 APPLIC; Start 07/01/18 at 09:00 Hydromorphone HCl (Dilaudid FILLING STATION EQUIPMENT MECHANIC) Q4PCA IV Last administered on 07/05/18 12:55; Admin Dose 6 MG; Start 07/02/18 at 16:00 JORDI ROBLES July 05, 2018 16:52
--- NOTE | 2018-07-05 18:32 | CONS ---
Assessment/Plan Assessment/Plan Assessment/Plan (Daily) note for 07/04 She is status post anterior retroperitoneal exposure interbody fusion of lumbosacral spine at levels L3-L4, L5-S1 Lumbar sacral spine postop pain Currently on CAD MANAGER we will adjust to include a continuous as well as a demand dose History of bronchitis On HHN's Insomnia Reviewed notes from neurosurgery will begin to taper down off CAD MANAGER her pain is controlled as possible for the degree of surgical intervention that she underwent. She is in agreement to begin to taper down to oral pain control medications. Consultation Date/Type/Reason Admit Date/Time June 25, 2018 at 13:19 Initial Consult Date Date/Time of Note DATE: 07/05/18 TIME: 18:30 Exam/Review of Systems Exam Vitals Vital Signs Date Temp Pulse Resp B/P (MAP) Pulse Ox O2 O2 Flow FiO2 Time Delivery Rate 07/05/18 18 17:48 07/05/18 99.2 72 99/54 (69) 95 Room Air 15:34 07/05/18 21 09:47 07/04/18 3.0 08:28 Intake and Output 07/04/18 07/04/18 07/05/18 1515:00 23:00 07:00 IntakeIntake Total 400 ml 120 ml OutputOutput Total 2 ml BalanceBalance 400 ml 118 ml Constitutional: alert, oriented, well developed, frail Psych: anxiety Neurological: WEB DEVELOPMENT MANAGER II-XII intact, nl mental status, nl speech, nl strength Results Result Diagram: 07/02/18 0514 07/02/18 0513 Medications Medication Current Medications Al Hydrox/Mg Hydrox/Simethicone (Mag-Al Plus) 15 ml Q4H PRN PO .CONSTIPATION Last administered on 07/04/18at 12:02; Admin Dose 15 ML; Start 06/25/18 at 19:00 IV Flush (NS 3 ml) 3 ml PER PROTOCOL IV ; Start 06/25/18 at 19:00 Naloxone HCl (Narcan) 0.2 mg Q2M PRN IV RR 8 BREATHS/MIN OR LESS; Start 06/25/18 at 19:00 Lorazepam (Ativan) 0.5 mg Q4 PRN IV AGITATION/ANXIETY Last administered on 06/29/18at 16:01; Admin Dose 0.5 MG; Start 06/26/18 at 11:30 Atenolol (Tenormin) 100 mg DAILY PO Last administered on 07/04/18 08:40; Admin Dose 100 MG; Start 06/26/18 at 11:30 Montelukast Sodium (Singulair) 10 mg QHS PO Last administered on 07/04/18 22:10; Admin Dose 10 MG; Start 06/26/18 at 21:00 Quetiapine Fumarate (Seroquel) 400 mg HS PO Last administered on 07/04/18 22:10; Admin Dose 400 MG; Start 06/26/18 at 21:00 Tiotropium [place] (Spiriva) 1 inh DAILY INH Last administered on 07/05/18 09:17; Admin Dose 1 INH; Start 06/26/18 at 11:30 Lamotrigine (Lamictal) 50 mg DAILY PO Last administered on 07/05/18 09:17; Admin Dose 50 MG; Start 06/26/18 at 11:30 Albuterol/ Ipratropium (Duoneb) 3 ml Q4H RESP THERAPY PRN HHN SHORTNESS OF BREATH Last administered on 06/26/18 13:08; Admin Dose 3 ML; Start 06/26/18 at 12:00 Arformoterol Tartrate (Brovana (Neb)) 2 ml BID RESP THERAPY INH Last administered on 07/05/18 09:46; Admin Dose 2 ML; Start 06/26/18 at 13:00 Budesonide (Pulmicort (Neb)) 0.5 mg Q12H RESP THERAPY INH Last administered on 07/05/18 09:46; Admin Dose 0.5 MG; Start 06/26/18 at 13:00 Clonazepam (Klonopin) 1 mg HS PRN PO INSOMNIA Last administered on 07/04/18 22:09; Admin Dose 1 MG; Start 06/26/18 at 16:30 Acetaminophen (Tylenol Tab) 650 mg Q4H PRN PO MILD PAIN(1-3)OR ELEVATED TEMP Last administered on 07/05/18 09:19; Admin Dose 650 MG; Start 06/27/18 at 20:00 Miscellaneous Information 1 ea NOTE XX ; Start 06/29/18 at 17:30 Diphenhydramine HCl (Benadryl) 25 mg Q6H PRN IV ITCHING Last administered on 07/05/18 14:34; Admin Dose 25 MG; Start 06/30/18 at 18:30 Hydrocortisone (Hydrocortisone 1% Cr) 1 applic TID PRN TOP itching Last administered on 07/02/18at 15:59; Admin Dose 1 APPLIC; Start 07/01/18 at 09:00 Hydromorphone HCl (Dilaudid CAD MANAGER) Q4PCA IV Last administered on 07/05/18at 12:55; Admin Dose 6 MG; Start 07/02/18 at 16:00 MARYSE CHAVARRIA July 05, 2018 18:32
[2018-07-05 19:35] VITALS: BP 123/75; PULSE 75; RESP 20
[2018-07-05] MEDS: QUETIAPINE 100 MG TAB PO SCH (21:59)
[2018-07-05] MEDS: MONTELUKAST 10 MG TAB PO SCH (21:59)
[2018-07-05] MEDS: clonAZEPAM 0.5 MG TAB PO PRN (22:06)
[2018-07-06] MEDS: HYDROmorphONE 0.2 MG/ML PCA IV SCH (03:24)
[2018-07-06 07:59] VITALS: BP 102/64; PULSE 72; RESP 18
[2018-07-06] MEDS: ATENOLOL 100 MG TAB PO SCH (08:50)
[2018-07-06] MEDS: LAMOTRIGINE 25 MG TAB PO SCH (08:51)
[2018-07-06] MEDS: TIOTROPIUM 18 MCG CAPSULE INHA DEV INH SCH (08:51)
[2018-07-06] MEDS: ARFORMOTEROL TARTRATE 15MCG/2 ML AMP INH SCH ×2 (09:02→21:05)
[2018-07-06] MEDS: BUDESONIDE (NEB) 0.5MG/2ML AMP INH SCH ×2 (09:03→21:05)
--- NOTE | 2018-07-06 09:21 | PN ---
Date/Time of Note Date/Time of Note DATE: 07/06/18 TIME: 09:21 Assessment/Plan VTE Prophylaxis Risk score (from Ns)>0 risk: 6 SCD applied (from Ns): Yes SCD contraindicated: other Pharmacological prophylaxis: other Pharm contraindication: other Lines/Catheters IV Catheter Type (from Nrsg): Peripheral IV Urinary Cath still in place: No Assessment/Plan Assessment/Plan -Mechanical LBP and LE radiculopathy. S/p ALIF L3,[address] Norman with anterior peritoneal exposure by Dr. Atkinson on 06/25/18. - S/p L4-5 Lumbar Hardware Removal and L3-S1 ISF placement by Reyes Norman on 06/26/18. 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 - Continue IV fluids and postoperative antibiotic. - Physical therapy. -Chronic lower back pain. - Dr. Lux is following in pain management consultation. -Hypertension, continue atenolol. -COPD, continue budesonide -Severe insomnia Disposition: home with home health PT services Further recommendations based on clinical course. Plan of care discussed with Dr. Gibbons. Result Diagram: 07/02/1814 07/02/18512 Subjective 24 Hr Interval Summary Free Text/Dictation c/o back pain- on Dilaudid FOUNDATION ENGINEER for pain control; pain management follows afebrile no new events reported overnight dw staff Eyes: no complaints ENT: no complaints Respiratory: no complaints Cardiovascular: no complaints Gastrointestinal: no complaints Genitourinary: no complaints Musculoskeletal: back pain Skin: no complaints Neurologic: no complaints Endocrine: no complaints Lymphatic: no complaints Psychological: nl mood/affect Exam/Review of Systems Exam Vitals Vital Signs Date Temp Pulse Resp B/P (MAP) Pulse Ox O2 O2 Flow FiO2 Time Delivery Rate 07/06/18 Nasal 09:11 Cannula 07/06/18 98.1 72 18 102/64 98 07:59 (77) 07/05/18 21 19:43 07/04/18 3.0 08:28 Intake and Output 07/05/18 07/05/18 07/06/18 1515:00 23:00 07:00 IntakeIntake Total 200 ml OutputOutput Total 1 ml BalanceBalance 200 ml -1 ml Constitutional: alert, well developed Psych: nl mood/affect Eyes: nl lids, nl sclera ENMT: nl external ears & nose Neck: non-tender Respiratory: clear to auscultation Cardiovascular: nl pulses, other (s1s2) Gastrointestinal: soft Musculoskeletal: joint tenderness, range of motion (lowere back) Extremities: normal pulses Neurological: nl mental status, nl speech Lymph: nontender Medications Medication Current Medications Al Hydrox/Mg Hydrox/Simethicone (Mag-Al Plus) 15 ml Q4H PRN PO .CONSTIPATION Last administered on 07/04/18 12:02; Admin Dose 15 ML; Start 06/25/18 at 19:00 IV Flush (NS 3 ml) 3 ml PER PROTOCOL IV ; Start 06/25/18 at 19:00 Naloxone HCl (Narcan) 0.2 mg Q2M PRN IV RR 8 BREATHS/MIN OR LESS; Start 06/25/18 at 19:00 Lorazepam (Ativan) 0.5 mg Q4 PRN IV AGITATION/ANXIETY Last administered on 06/29/18 16:01; Admin Dose 0.5 MG; Start 06/26/18 at 11:30 Atenolol (Tenormin) 100 mg DAILY PO Last administered on 07/04/18 08:40; Admin Dose 100 MG; Start 06/26/18 at 11:30 Montelukast Sodium (Singulair) 10 mg QHS PO Last administered on 07/05/18 21:59; Admin Dose 10 MG; Start 06/26/18 at 21:00 Quetiapine Fumarate (Seroquel) 400 mg HS PO Last administered on 07/05/18 21:59; Admin Dose 400 MG; Start 06/26/18 at 21:00 Tiotropium [place] (Spiriva) 1 inh DAILY INH Last administered on 07/06/18 0 8:51; Admin Dose 1 INH; Start 06/26/18 at 11:30 Lamotrigine (Lamictal) 50 mg DAILY PO Last administered on 07/06/18 08:51; Admin Dose 50 MG; Start 06/26/18 at 11:30 Albuterol/ Ipratropium (Duoneb) 3 ml Q4H RESP THERAPY PRN HHN SHORTNESS OF BREATH Last administered on 06/26/18 13:08; Admin Dose 3 ML; Start 06/26/18 at 12:00 Arformoterol Tartrate (Brovana (Neb)) 2 ml BID RESP THERAPY INH Last administered on 07/06/18 09:02; Admin Dose 2 ML; Start 06/26/18 at 13:00 Budesonide (Pulmicort (Neb)) 0.5 mg Q12H RESP THERAPY INH Last administered on 07/06/18 09:03; Admin Dose 0.5 MG; Start 06/26/18 at 13:00 Clonazepam (Klonopin) 1 mg HS PRN PO INSOMNIA Last administered on 07/05/18 22:06; Admin Dose 1 MG; Start 06/26/18 at 16:30 Acetaminophen (Tylenol Tab) 650 mg Q4H PRN PO MILD PAIN(1-3)OR ELEVATED TEMP Last administered on 07/05/18 09:19; Admin Dose 650 MG; Start 06/27/18 at 20:00 Miscellaneous Information 1 ea NOTE XX ; Start 06/29/18 at 17:30 Diphenhydramine HCl (Benadryl) 25 mg Q6H PRN IV ITCHING Last administered on 07/05/18 21:59; Admin Dose 25 MG; Start 06/30/18 at 18:30 Hydrocortisone (Hydrocortisone 1% Cr) 1 applic TID PRN TOP itching Last administered on 07/02/18 15:59; Admin Dose 1 APPLIC; Start 07/01/18 at 09:00 Hydromorphone HCl (Dilaudid FOUNDATION ENGINEER) Q4PCA IV Last administered on 07/06/18 03:24; Admin Dose 6 MG; Start 07/02/18 at 16:00 ADRI RIDER July 06, 2018 09:21
[2018-07-06] MEDS: DIPHENHYDRAMINE 50 MG INJ IV PRN ×2 (09:48→16:17)
[2018-07-06] MEDS: HYDROmorphONE 2 MG TAB PO PRN ×3 (11:09→19:51)
--- NOTE | 2018-07-06 11:59 | PN ---
Date/Time of Note Date/Time of Note DATE: 07/06/18 TIME: 11:59 Assessment/Plan VTE Prophylaxis Risk score (from Ns)>0 risk: 3 SCD applied (from Ns): Yes Lines/Catheters IV Catheter Type (from Nrs): Peripheral IV Urinary Cath still in place: No Assessment/Plan Result Diagram: 07/02/1851307/02/18512 Exam/Review of Systems Exam Vitals Vital Signs Date Temp Pulse Resp B/P (MAP) Pulse Ox O2 O2 Flow FiO2 Time Delivery Rate 07/06/18 Nasal 09:11 Cannula 07/06/18 98.1 72 18 102/64 98 07:59 (77) 07/05/18 21 19:43 07/04/18 3.0 08:28 Intake and Output 07/05/18 07/05/18 07/06/18 1515:00 23:00 07:00 IntakeIntake Total 200 ml OutputOutput Total 1 ml BalanceBalance 200 ml -1 ml Medications Medication Current Medications Al Hydrox/Mg Hydrox/Simethicone (Mag-Al Plus) 15 ml Q4H PRN PO .CONSTIPATION Last administered on 07/04/18at 12:02; Admin Dose 15 ML; Start 06/25/18 at 19:00 IV Flush (NS 3 ml) 3 ml PER PROTOCOL IV ; Start 06/25/18 at 19:00 Naloxone HCl (Narcan) 0.2 mg Q2M PRN IV RR 8 BREATHS/MIN OR LESS; Start 06/25/18 at 19:00 Lorazepam (Ativan) 0.5 mg Q4 PRN IV AGITATION/ANXIETY Last administered on 06/29/18at 16:01; Admin Dose 0.5 MG; Start 06/26/18 at 11:30 Atenolol (Tenormin) 100 mg DAILY PO Last administered on 07/04/18 08:40; Admin Dose 100 MG; Start 06/26/18 at 11:30 Montelukast Sodium (Singulair) 10 mg QHS PO Last administered on 07/05/18 21:59; Admin Dose 10 MG; Start 06/26/18 at 21:00 Quetiapine Fumarate (Seroquel) 400 mg HS PO Last administered on 07/05/18 21:59; Admin Dose 400 MG; Start 06/26/18 at 21:00 Tiotropium [place] (Spiriva) 1 inh DAILY INH Last administered on 07/06/18 08:51; Admin Dose 1 INH; Start 06/26/18 at 11:30 Lamotrigine (Lamictal) 50 mg DAILY PO Last administered on 07/06/18 08:51; Admin Dose 50 MG; Start 06/26/18 at 11:30 Albuterol/ Ipratropium (Duoneb) 3 ml Q4H RESP THERAPY PRN HHN SHORTNESS OF BREATH Last administered on 06/26/18 13:08; Admin Dose 3 ML; Start 06/26/18 at 12:00 Arformoterol Tartrate (Brovana (Neb)) 2 ml BID RESP THERAPY INH Last administered on 07/06/18 09:02; Admin Dose 2 ML; Start 06/26/18 at 13:00 Budesonide (Pulmicort (Neb)) 0.5 mg Q12H RESP THERAPY INH Last administered on 07/06/18 09:03; Admin Dose 0.5 MG; Start 06/26/18 at 13:00 Clonazepam (Klonopin) 1 mg HS PRN PO INSOMNIA Last administered on 07/05/18 22:06; Admin Dose 1 MG; Start 06/26/18 at 16:30 Acetaminophen (Tylenol Tab) 650 mg Q4H PRN PO MILD PAIN(1-3)OR ELEVATED TEMP Last administered on 07/05/18 09:19; Admin Dose 650 MG; Start 06/27/18 at 20:00 Miscellaneous Information 1 ea NOTE XX ; Start 06/29/18 at 17:30 Diphenhydramine HCl (Benadryl) 25 mg Q6H PRN IV ITCHING Last administered on 07/06/18 09:48; Admin Dose 25 MG; Start 06/30/18 at 18:30 Hydrocortisone (Hydrocortisone 1% Cr) 1 applic TID PRN TOP itching Last administered on 07/02/18 15:59; Admin Dose 1 APPLIC; Start 07/01/18 at 09:00 Hydromorphone HCl (Dilaudid) 2 mg Q4H PRN PO SEVERE PAIN LEVEL 7-10 Last administered on 07/06/18 11:09; Admin Dose 2 MG; Start 07/06/18 at 11:00 SAMARIA ALFORD NP July 06, 2018 11:59
[2018-07-06 14:28] VITALS: BP 101/63; PULSE 83; RESP 18
[2018-07-06 14:32] VITALS: BP 119/67; PULSE 56; RESP 18
[2018-07-06] MEDS: LORAZEPAM 2 MG INJ IV PRN ×2 (16:17→20:51)
[2018-07-06] MEDS ORDERED: BACLOFEN 10 MG TAB PO PRN (16:30)
[2018-07-06 19:35] VITALS: BP 114/67; PULSE 82; RESP 20
[2018-07-06] MEDS: MONTELUKAST 10 MG TAB PO SCH (20:51)
[2018-07-07] MEDS: HYDROmorphONE 2 MG TAB PO PRN ×4 (00:01→16:57)
[2018-07-07] MEDS: DIPHENHYDRAMINE 50 MG INJ IV PRN ×2 (00:06→19:39)
[2018-07-07] MEDS: clonAZEPAM 0.5 MG TAB PO PRN ×2 (00:06→22:49)
[2018-07-07 02:30] VITALS: BP 99/63; PULSE 80; RESP 20
[2018-07-07] MEDS: LORAZEPAM 2 MG INJ IV PRN ×4 (03:18→18:21)
[2018-07-07 07:31] VITALS: BP 118/69; PULSE 91; RESP 15
[2018-07-07] MEDS: BUDESONIDE (NEB) 0.5MG/2ML AMP INH SCH ×2 (07:45→19:21)
[2018-07-07] MEDS: ARFORMOTEROL TARTRATE 15MCG/2 ML AMP INH SCH ×2 (07:45→19:21)
[2018-07-07] MEDS: ATENOLOL 100 MG TAB PO SCH (09:00)
[2018-07-07] MEDS: LAMOTRIGINE 25 MG TAB PO SCH (09:14)
[2018-07-07] MEDS: TIOTROPIUM 18 MCG CAPSULE INHA DEV INH SCH (09:15)
--- NOTE | 2018-07-07 12:05 | PN ---
Date/Time of Note Date/Time of Note DATE: 07/07/18 TIME: 12:05 Assessment/Plan VTE Prophylaxis Risk score (from Ns)>0 risk: 4 SCD applied (from Ns): No SCD contraindicated: other Pharmacological prophylaxis: LMWH Lines/Catheters IV Catheter Type (from Nrsg): Saline Lock Urinary Cath still in place: No Assessment/Plan Hospital Course -Mechanical LBP and LE radiculopathy. S/p ALIF L3,[address] Norman with anterior peritoneal exposure by Dr. Atkinson on 06/25/18. S/p L4-5 Lumbar Hardware Removal and L3-S1 ISF placement by Reyes Norman on 06/26/18. 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 Continue IV fluids and postoperative antibiotic. Physical therapy. -Chronic lower back pain. Dr. Lux is following in pain management consultation. -Hypertension, continue atenolol. -COPD, continue budesonide -Severe insomnia Result Diagram: 07/07/18 1106 Results 24hrs Laboratory Tests Test 07/07/18 11:06 White Blood Count 7.1 Red Blood Count 3.63 L Hemoglobin 11.3 L Hematocrit 33.7 L Mean Corpuscular Volume 92.8 Mean Corpuscular Hemoglobin 31.1 Mean Corpuscular Hemoglobin Concent 33.5 Red Cell Distribution Width 11.9 Platelet Count 520 #H Mean Platelet Volume 9.7 Immature Granulocytes % 1.100 H Neutrophils % 75.2 Lymphocytes % 14.1 L Monocytes % 5.4 Eosinophils % 3.4 Basophils % 0.8 Nucleated Red Blood Cells % 0.0 Immature Granulocytes # 0.080 H Neutrophils # 5.3 Lymphocytes # 1.0 Monocytes # 0.4 Eosinophils # 0.2 Basophils # 0.1 Nucleated Red Blood Cells # 0.0 Subjective 24 Hr Interval Summary Free Text/Dictation Patient has some back pain Exam/Review of Systems Exam Vitals Vital Signs Date Temp Pulse Resp B/P (MAP) Pulse Ox O2 O2 Flow FiO2 Time Delivery Rate 07/07/18 85 16 96 21 07:46 07/07/18 98.0 118/69 Room Air 07:31 (85) 07/04/18 3.0 08:28 Intake and Output 07/06/18 07/06/18 07/07/18 1515:00 23:00 07:00 IntakeIntake Total 540 ml 440 ml OutputOutput Total 2 ml BalanceBalance 538 ml 440 ml Constitutional: well developed Head: normocephalic, atraumatic Neck: supple Respiratory: clear to auscultation Cardiovascular: regular rate and rhythm Gastrointestinal: soft, non-tender Extremities: normal pulses Results Results 24hrs Laboratory Tests Test 07/07/18 11:06 White Blood Count 7.1 Red Blood Count 3.63 L Hemoglobin 11.3 L Hematocrit 33.7 L Mean Corpuscular Volume 92.8 Mean Corpuscular Hemoglobin 31.1 Mean Corpuscular Hemoglobin Concent 33.5 Red Cell Distribution Width 11.9 Platelet Count 520 #H Mean Platelet Volume 9.7 Immature Granulocytes % 1.100 H Neutrophils % 75.2 Lymphocytes % 14.1 L Monocytes % 5.4 Eosinophils % 3.4 Basophils % 0.8 Nucleated Red Blood Cells % 0.0 Immature Granulocytes # 0.080 H Neutrophils # 5.3 Lymphocytes # 1.0 Monocytes # 0.4 Eosinophils # 0.2 Basophils # 0.1 Nucleated Red Blood Cells # 0.0 Medications Medication Current Medications Al Hydrox/Mg Hydrox/Simethicone (Mag-Al Plus) 15 ml Q4H PRN PO .CONSTIPATION Last administered on 07/04/18at 12:02; Admin Dose 15 ML; Start 06/25/18 at 19:00 IV Flush (NS 3 ml) 3 ml PER PROTOCOL IV ; Start 06/25/18 at 19:00 Naloxone HCl (Narcan) 0.2 mg Q2M PRN IV RR 8 BREATHS/MIN OR LESS; Start 06/25/18 at 19:00 Lorazepam (Ativan) 0.5 mg Q4 PRN IV AGITATION/ANXIETY Last administered on 07/07/18at 08:07; Admin Dose 0.5 MG; Start 06/26/18 at 11:30 Atenolol (Tenormin) 100 mg DAILY PO Last administered on 07/04/18at 08:40; Admin Dose 100 MG; Start 06/26/18 at 11:30 Montelukast Sodium (Singulair) 10 mg QHS PO Last administered on 07/06/18at 20:51; Admin Dose 10 MG; Start 06/26/18 at 21:00 Quetiapine Fumarate (Seroquel) 400 mg HS PO Last administered on 07/07/18 00:00; Admin Dose 400 MG; Start 06/26/18 at 21:00 Tiotropium [place] (Spiriva) 1 inh DAILY INH Last administered on 07/07/18 09:15; Admin Dose 1 INH; Start 06/26/18 at 11:30 Lamotrigine (Lamictal) 50 mg DAILY PO Last administered on 07/07/18 09:14; Admin Dose 50 MG; Start 06/26/18 at 11:30 Albuterol/ Ipratropium (Duoneb) 3 ml Q4H RESP THERAPY PRN HHN SHORTNESS OF BREATH Last administered on 06/26/18 13:08; Admin Dose 3 ML; Start 06/26/18 at 12:00 Arformoterol Tartrate (Brovana (Neb)) 2 ml BID RESP THERAPY INH Last administered on 07/07/18 07:45; Admin Dose 2 ML; Start 06/26/18 at 13:00 Budesonide (Pulmicort (Neb)) 0.5 mg Q12H RESP THERAPY INH Last administered on 07/07/18 07:45; Admin Dose 0.5 MG; Start 06/26/18 at 13:00 Clonazepam (Klonopin) 1 mg HS PRN PO INSOMNIA Last administered on 07/07/18 00:06; Admin Dose 1 MG; Start 06/26/18 at 16:30 Acetaminophen (Tylenol Tab) 650 mg Q4H PRN PO MILD PAIN(1-3)OR ELEVATED TEMP Last administered on 07/05/18 09:19; Admin Dose 650 MG; Start 06/27/18 at 20:00 Miscellaneous Information 1 ea NOTE XX ; Start 06/29/18 at 17:30 Diphenhydramine HCl (Benadryl) 25 mg Q6H PRN IV ITCHING Last administered on 07/07/18 00:06; Admin Dose 25 MG; Start 06/30/18 at 18:30 Hydrocortisone (Hydrocortisone 1% Cr) 1 applic TID PRN TOP itching Last administered on 07/02/18 15:59; Admin Dose 1 APPLIC; Start 07/01/18 at 09:00 Hydromorphone HCl (Dilaudid) 2 mg Q4H PRN PO SEVERE PAIN LEVEL 7-10 Last administered on 07/07/18at 11:19; Admin Dose 2 MG; Start 07/06/18 at 11:00 Baclofen (Lioresal) 10 mg Q6H PRN PO MUSCLE SPASMS; Start 07/06/18 at 16:30 LISSETH UMANA Jul 07, 2018 12:05
[2018-07-07 13:57] VITALS: BP 122/82; PULSE 82; RESP 15
[2018-07-07 20:40] VITALS: BP 133/82; PULSE 79; RESP 18
[2018-07-07] MEDS: MONTELUKAST 10 MG TAB PO SCH ×2 (21:00→22:47)
[2018-07-07] MEDS: QUETIAPINE 100 MG TAB PO SCH ×3 (21:00→22:47)
[2018-07-08] MEDS: HYDROmorphONE 2 MG TAB PO PRN (00:08)
[2018-07-08 02:10] VITALS: BP 118/73; PULSE 88; RESP 18
[2018-07-08] MEDS: LORAZEPAM 2 MG INJ IV PRN ×2 (03:48→07:37)
[2018-07-08] MEDS: DIPHENHYDRAMINE 50 MG INJ IV PRN (05:53)
[2018-07-08 07:36] VITALS: BP 129/83; PULSE 104; RESP 14
[2018-07-08] MEDS ORDERED: LORAZEPAM 1 MG TAB PO PRN (08:00)
[2018-07-08] MEDS: ARFORMOTEROL TARTRATE 15MCG/2 ML AMP INH SCH (08:03)
[2018-07-08] MEDS: BUDESONIDE (NEB) 0.5MG/2ML AMP INH SCH (08:03)
[2018-07-08] MEDS: OXYCODONE/ACETAMINOPHEN (10/325) TAB PO PRN ×2 (08:30→14:20)
[2018-07-08] MEDS ORDERED: DIPHENHYDRAMINE 25 MG CAP PO PRN (08:30)
[2018-07-08] MEDS: ATENOLOL 100 MG TAB PO SCH (08:31)
[2018-07-08] MEDS: LAMOTRIGINE 25 MG TAB PO SCH (08:31)
[2018-07-08] MEDS: TIOTROPIUM 18 MCG CAPSULE INHA DEV INH SCH (10:51)
[2018-07-08] MEDS ORDERED: LORA1TAB PO (11:16)
[2018-07-08] MEDS ORDERED: OXYC-431 PO (11:16)
--- NOTE | 2018-07-08 11:18 | DS ---
Date/Time of Note Date/Time of Note DATE: 07/08/18 TIME: 11:17 Discharge Summary Admission/Discharge Info Admit Date/Time June 25, 2018 at 13:19 Discharge Date/Time 07/08/18 Discharge Diagnosis -Mechanical LBP and LE radiculopathy. S/p ALIF L3,[address] Norman with anterior peritoneal exposure by Dr. Atkinson on 06/25/18. S/p L4-5 Lumbar Hardware Removal and L3-S1 ISF placement by Reyes Norman on 06/26/18. 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 Continue IV fluids and postoperative antibiotic. Physical therapy. -Chronic lower back pain. Dr. Lux is following in pain management consultation. -Hypertension, continue atenolol. -COPD, continue budesonide -Severe insomnia Patient Condition: Fair Consults Vascular surgery Neurosurgery Procedures spinal fusion Hx of Present Illness Patient with back pain due to radiculopathy comes in for surgery of L3,4 and L5ZS1. Hospital Course Patient with back pain due to radiculopathy comes in for surgery of L3,4 and L5ZS1. Patient underwent procedure and once felt to be stable per surgery, patient was sent home. -Mechanical LBP and LE radiculopathy. S/p ALIF L3,[address] Norman with anterior peritoneal exposure by Dr. Atkinson on 06/25/18. S/p L4-5 Lumbar Hardware Removal and L3-S1 ISF placement by Reyes Norman on 06/26/18. 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 Continue IV fluids and postoperative antibiotic. Physical therapy. -Chronic lower back pain. Dr. Lux is following in pain management consulta tion. -Hypertension, continue atenolol. -COPD, continue budesonide -Severe insomnia Home Meds Active Scripts Oxycodone HCl/Acetaminophen (Oxycodone-Acetaminophen 10-325) 1 Each Tablet, 2 TAB PO Q6H PRN for MODERATE PAIN LEVEL 4-6 for 10 Days, #30 TAB Prov:LISSETH UMANA Y 07/08/18 Lorazepam* (Lorazepam*) 1 Mg Tablet, 1 MG PO Q6H PRN for ANXIETY for 10 Days, #30 TAB Prov:LISSETH UMANA 07/08/18 Reported Medications Lamotrigine* (Lamictal*) 100 Mg Tablet, 50 MG PO DAILY, TAB 06/25/18 Eszopiclone (Lunesta) 2 Mg Tab, 2 MG PO HS PRN for INSOMNIA, TAB 06/25/18 Temazepam* (Restoril*) 15 Mg Capsule, 15 MG PO HS PRN for INSOMNIA, CAP 06/25/18 Quetiapine Fumarate* (Seroquel*) 400 Mg Tablet, 400 MG PO HS, TAB 06/25/18 Montelukast Sodium* (Singulair*) 10 Mg Tablet, 10 MG PO QHS, #30 TAB 06/25/18 Atenolol* (Atenolol*) 100 Mg Tablet, 100 MG PO DAILY, #30 TAB 06/25/18 Tiotropium [place]* (Spiriva*) 18 Mcg Cap.w.dev, 1 CAP INHALATION DAILY, #30 CAP 06/25/18 Budesonide-Formoterol Fumarate* (Symbicort*) 80-4.5 Inha, 2 PUFFS INHALATION BID, #1 EACH 06/25/18 Primary Care Provider Not On Staff Doctor LISSETH UMANA Jul 08, 2018 11:18
== END 2018-07-08 15:30 | disposition home or self-care (01) | DRG 454 ==
LOC: REC 13:19 → ICU 20:50 → 6WM 06-27 16:00 → MS1 07-01 12:46
PROVIDERS: ADMIT Neurological Surgery; ATTEND Neurological Surgery
PROC: 0SG30K0 Fusion of Lumbosacral Joint with Nonautologous Tissue Substitute, Anterior Approach, Anterior Column, Open Approach (ICD-10-PCS; 2018-06-25)
PROC: 0SH004Z Insertion of Internal Fixation Device into Lumbar Vertebral Joint, Open Approach (ICD-10-PCS; 2018-06-25)
PROC: 0SH304Z Insertion of Internal Fixation Device into Lumbosacral Joint, Open Approach (ICD-10-PCS; 2018-06-25)
PROC: 0SG00A0 Fusion of Lumbar Vertebral Joint with Interbody Fusion Device, Anterior Approach, Anterior Column, Open Approach (ICD-10-PCS; principal; 2018-06-25 16:00)
PROC: 0SG10K1 Fusion of 2 or more Lumbar Vertebral Joints with Nonautologous Tissue Substitute, Posterior Approach, Posterior Column, Open Approach (ICD-10-PCS; 2018-06-26)
PROC: 0SP004Z Removal of Internal Fixation Device from Lumbar Vertebral Joint, Open Approach (ICD-10-PCS; 2018-06-26)
PROC: 0SG30K1 Fusion of Lumbosacral Joint with Nonautologous Tissue Substitute, Posterior Approach, Posterior Column, Open Approach (ICD-10-PCS; 2018-06-26)
DX: M51.17 Intervertebral disc disorders with radiculopathy, lumbosacral region (principal); T84.84XA Pain due to internal orthopedic prosthetic devices, implants and grafts, initial encounter; I10 Essential (primary) hypertension; J44.9 Chronic obstructive pulmonary disease, unspecified; G47.09 Other insomnia; Z87.828 Personal history of other (healed) physical injury and trauma; Z91.81 History of falling; G89.4 Chronic pain syndrome; L29.9 Pruritus, unspecified; Z87.09 Personal history of other diseases of the respiratory system
CPT/HCPCS: 71045; 72100; 72110; 72131; 80048; 80053; 81003; 85025; 85610; 85730; 86850; 86900; 86901; 86920; 87086; 88300; 88304; 88311; 93005; 94640; 94664; 97116; 97162; 97530; J0690; J1170; J1200; J1644; J2060; J2175; J2250; J2370; J2405; J2710; J2765; J2795; J3010; J3480; J7120

== ENCOUNTER 2018-07-18 12:56 | Emergency (ER) | payer OTHER ==
[~2018-07-18] VITALS: Ht 157.5 cm; Wt 61.8 kg
[~2018-07-18 12:56] MED LIST: ATEN100T PO; LAMO100T83 PO; LORA1TAB PO; LUN2 PO; MONT10TA21 PO; OXYC-431 PO; QUET400T PO; SYMB80120 INHALATION; TEMA15CA6 PO; TIOT18CA INHALATION
[2018-07-18 13:15] VITALS: BP 128/88; PULSE 78; RESP 19; Ht 157.5 cm; Wt 61.8 kg
--- NOTE | 2018-07-18 13:35 | ERD ---
ER Documentation Chief Complaint Chief Complaint BACK PAIN X 2 WEEKS HPI Patient is a 52 years old female presenting to the clinic for severe back pain post op x 1 week. Patient admits to back surgery 1 week ago and states that her PCP will not give her refill and instructed her go to ER for refills. Patient rates her lower back pain 7/. ROS All systems reviewed and are negative except as per history of present illness. Medications Home Meds Active Scripts Acetaminophen* (Acetaminophen*) 500 MG Extra Strength Tablet, 1000 MG PO Q6H PRN for PAIN AND OR ELEVATED TEMP for 7 Days, TAB Prov:MARIA DOLORES ACOSTA PA-C 07/18/18 Oxycodone HCl/Acetaminophen (Oxycodone-Acetaminophen 10-325) 1 Each Tablet, 2 TAB PO Q6H PRN for MODERATE PAIN LEVEL 4-6 for 10 Days, #30 TAB Prov:LISSETH UMANA Y 07/08/18 Lorazepam* (Lorazepam*) 1 Mg Tablet, 1 MG PO Q6H PRN for ANXIETY for 10 Days, #30 TAB Prov:LISSETH UMANA Y 07/08/18 Reported Medications Lamotrigine* (Lamictal*) 100 Mg Tablet, 50 MG PO DAILY, TAB 06/25/18 Eszopiclone (Lunesta) 2 Mg Tab, 2 MG PO HS PRN for INSOMNIA, TAB 06/25/18 Temazepam* (Restoril*) 15 Mg Capsule, 15 MG PO HS PRN for INSOMNIA, CAP 06/25/18 Quetiapine Fumarate* (Seroquel*) 400 Mg Tablet, 400 MG PO HS, TAB 06/25/18 Montelukast Sodium* (Singulair*) 10 Mg Tablet, 10 MG PO QHS, #30 TAB 06/25/18 Atenolol* (Atenolol*) 100 Mg Tablet, 100 MG PO DAILY, #30 TAB 06/25/18 Tiotropium [place]* (Spiriva*) 18 Mcg Cap.w.dev, 1 CAP INHALATION DAILY, #30 CAP 06/25/18 Budesonide-Formoterol Fumarate* (Symbicort*) 80-4.5 Inha, 2 PUFFS INHALATION BID, #1 EACH 06/25/18 Allergies Allergies: Coded Allergies: amoxicillin (Verified Allergy, Severe, SWELLING, VOMITING, 06/25/18) clavulanic acid (Verified Allergy, Severe, SWELLING, VOMITING, 06/25/18) ketorolac (Verified Allergy, Severe, ANAPHYLAXIS, 06/25/18) morphine (Verified Allergy, Severe, 06/25/18) PMhx/Soc History of Surgery: No Anesthesia Reaction: No Hx Neurological Disorder: No Hx Respiratory Disorders: Yes (ASTHMA) Hx Cardiac Disorders: Yes (HTN) Hx Psychiatric Problems: No Hx Miscellaneous Medical Probl: Yes (See note) Hx Alcohol Use: Yes (SOCIALLY) Hx Substance Use: No Hx Tobacco Use: No Smoking Status: Never smoker Physical Exam Vitals Vital Signs Date Temp Pulse Resp B/P (MAP) Pulse Ox O2 O2 Flow FiO2 Time Delivery Rate 07/18/18 98.0 78 19 128/88 97 13:15 (101) Physical Exam Const: No acute distress Head: Atraumatic Eyes: Normal Conjunctiva ENT: Normal External Ears, Nose and Mouth. Neck: Full range of motion. No meningismus. Resp: Clear to auscultation bilaterally Cardio: Regular rate and rhythm, no murmurs Abd: Soft, non tender, non distended. Normal bowel sounds Skin: No petechiae or rashes Back: No midline or flank tenderness Ext: No cyanosis, or edema Neur: Awake and alert Psych: Normal Mood and Affect Results 24 hrs Current Medications Medications Dose Sig/Pako Start Time Status Last (Trade) Ordered Route PRN Stop Time Admin Dose Reason Admin Oxycodone/ 1 tab ONCE ONCE 07/18/18 DC Acetaminophen PO 14:00 (Percocet 07/18/18 14:00 (5/ 325)) 1,000 mg ONCE STAT 07/18/18 DC 07/18/18 Acetaminophen PO 13:40 13:45 (Tylenol 07/18/18 13:41 Tab) Procedures/MDM Patient was seen and evaluated for lower back pain status post surgery. Patient was given Tylenol 1,000mg PO. Patient continued to request percocet. After consultation with Dr. De La Cruz, it was recommended to avoid narcotics and f/u with pain management center. CURES was checked with frequent control substances within the last 6 months with last Percocet on 07/08/18 with 30 tablets. Patient was advised that she will not be given control substances for today's visit. Departure Diagnosis: Primary Impression: Back pain Back pain location: low back pain Chronicity: acute Back pain laterality: unspecified Sciatica presence: without sciatica Qualified Codes: M54.5 - Low back pain Condition: Stable Patient Instructions: Back Pain (Acute Or Chronic) Referrals: DONN DARLING MD [facility] Additional Instructions: Patient advised to return to the ED immediately for new or worsening symptoms. Patient advised to follow up with primary care provider in the next 24-48 hours. Patient verbalized understanding and agrees with treatment plan and course of action. If patient has no primary care they may follow up with [facility] [address] [place] [id number] or [facility] [address] [place] [address] or [facility] [address] [place] [address] MARIA DOLORES ACOSTA PA-C Jul 18, 2018 13:35
[2018-07-18] MEDS ORDERED: ACETAMINOPHEN 500 MG TAB PO STA (13:40)
[2018-07-18] MEDS ORDERED: ACET-141 PO (13:57)
[2018-07-18] MEDS ORDERED: OXYCODONE/ACETAMINOPHEN (5/325) TAB PO ONE (14:00)
== END 2018-07-18 14:22 | disposition home or self-care (01) ==
LOC: FTE 12:56
DX: M54.5 Low back pain (principal); J45.909 Unspecified asthma, uncomplicated; I10 Essential (primary) hypertension
CPT/HCPCS: Z7502; Z7610; 99282